=== PATIENT | female | born 1990 | race African-American/Black ===

== ENCOUNTER 2019-05-12 02:41 | Inpatient (IN) ==
[2019-05-12] MEDS ORDERED: ONDANSETRON INJ 2 MG/ML 2 ML VIAL IV PRN ×2 (03:31→06:51)
[2019-05-12] MEDS ORDERED: LACTATED RINGER'S 2,000 ML IV ONE (03:31)
[2019-05-12] MEDS: LACTATED RINGER'S 1,000 ML IV SCH ×2 (03:35→04:32)
[2019-05-12] MEDS ORDERED: LACTATED RINGER'S 1,000 ML IV PRN (05:33)
[2019-05-12] MEDS ORDERED: OXYTOCIN 30 UNITS/500 ML BAG IV PRN ×2 (05:33→12:16)
[2019-05-12] MEDS ORDERED: ePHEDrine sulfate 50 MG/ML AMP ONE (05:45)
[2019-05-12] MEDS ORDERED: BUPIVACAINE 0.25% 30 ML VIAL ONE (05:45)
[2019-05-12] MEDS ORDERED: fentaNYL 2MCG/ML ROPIV 1.25MG/ML 100 ML BAG EPI ONE (05:46)
[2019-05-12] MEDS ORDERED: fentaNYL citrate 100 MCG/2 ML VIAL ONE (05:46)
[2019-05-12 06:06] LABS: Hematocrit (blood only) 34.2 % (37-47); Hemoglobin 11.1 g/dL (12.0-16.0); Mean Corpuscular Hemoglobin 25.6 pg (25-34); Mean Platelet Volume 9.4 fL (7.4-10.4); Platelet Count 291 K/uL (130-400); RDW Coefficient of Variation 13.8 % (11.5-14.5); RDW Standard Deviation 39.3 fL (36.4-46.3); Red Blood Count 4.33 M/uL (4.2-5.4); White Blood Count 10.88 K/uL (4.8-10.8)
[2019-05-12 06:14] LABS: Mean Corpuscular Hgb Conc 32.5 g/dL (32-36)
--- NOTE | 2019-05-12 06:27 | Anesthesiology Consultation ---
Date of Service May 12, 2019 Assessment & Plan (1) Encounter for pre-operative examination: Chart Review Chart Review: Acceptable Risk for Labor Epidural History Height/Weight Height: 5 ft 4 in Weight: 91.138 kg Allergies Allergy/AdvReac Type Severity Reaction Status Date / Time aspirin Allergy Verified 05/09/19 15:23 Penicillins Allergy Verified 05/09/19 15:23 Medications Home Medications Medication Instructions Recorded Confirmed Last Taken ferrous sulfate [iron] 325 mg PO DAILY 05/12/19 05/12/19 05/09/19 vit-iron fum-folic ac 1 tab PO DAILY 05/12/19 05/12/19 05/06/19 [ Vitamin] Active Medications Generic Name Dose Route Start Last Admin Trade Name Freq PRN Reason Stop Dose Admin Lactated Ringer's 1,000 mls @ 125 mls/hr 05/12/19 05:33 05/12/19 05:44 Lr IV 05/14/19 05:32 125 mls/hr .Q8H PRN Administration L&D Protocol Protocol Ondansetron HCl 4 mg 05/12/19 03:31 05/12/19 03:41 Zofran IV 06/11/19 03:30 4 mg Q4H PRN Administration Nausea And Vomiting Past Medical History Medical History H/O tuberculosis Pt tested positive for Tuberculosis and was treated in Asthma Chicken pox Past Family History Family History Grandmother (Maternal) Heart disease Father Hypertension Past Surgical History Surgical History H/O elbow surgery 1996 No pertinent past surgical history Social History Smoking Status: Never smoker Hx Alcohol Use: No Hx Substance Use: No Physical Exam Vital Signs Last Vital Signs Temp 37.4 C 05/12/19 03:02 Pulse 98 H 05/12/19 06:20 Resp 18 05/12/19 05:59 BP 135/89 05/12/19 04:06 Pulse Ox 100 05/12/19 06:20 Testing Laboratory Results 05/12/19 05:56
[2019-05-12] MEDS ORDERED: NALOXONE HCL 1 MG in SODIUM CHLORIDE 0.9% 1000ML 1,000 ML IV PRN (06:51)
[2019-05-12] MEDS ORDERED: NALOXONE HCL 0.4 MG/1 ML VIAL/CARP IV PRN (06:51)
[2019-05-12] MEDS ORDERED: fentaNYL 2MCG/ML ROPIV 1.25MG/ML 100 ML BAG EPI PRN (06:51)
[2019-05-12] MEDS ORDERED: ePHEDrine sulfate 50 MG/ML AMP IV PRN (06:51)
--- NOTE | 2019-05-12 08:31 | History & Physical Report ---
Date of Service May 12, 2019 Assessment & Plan (1) Normal labor: IUP at term in labor She had some watery discharge on the evening of 05/10 but has seen nothing but bloody show, mucus & brown discharge since then. epidural analgesia effective at this time anticipate vaginal . History of Present Illness Primary Care Provider: NO PCP Patient is a 29 yo female EDC 05/13/19 who presents with regular con tractions since 0300 hours. She had been having bloody show then brown discharge earlier in the day. baby active. GBS (-) cervix was initially 1cm on arrival. she also had 3+ ketones on arrival as well. cervix then progressed to 3 cm dilated and was admitted. Patient has otherwise had an uncomplicated . Allergies Allergy/AdvReac Type Severity Reaction Status Date / Time aspirin Allergy Verified 05/09/19 15:23 Penicillins Allergy Verified 05/09/19 15:23 Home Medications Home Medications Medication Instructions Recorded Confirmed Type ferrous sulfate [iron] 325 mg PO DAILY 05/12/19 05/12/19 History vit-iron fum-folic ac 1 tab PO DAILY 05/12/19 05/12/19 History [ Vitamin] Patient History Medical History H/O tuberculosis Pt tested positive for Tuberculosis and was treated in 2008 Asthma Chicken pox Surgical History H/O elbow surgery 1996 No pertinent past surgical history Family History Grandmother (Maternal) Heart disease Father Hypertension Social History Preferred Language: Central African Communication Ability: Effective Corporate Strategy Intern Required: No Beliefs That Will Affect Care: None marital status: Single Current Living Situation: Spouse Other Information That Helps Us Care for You: No Feels Safe at Home: Yes Safety Concerns: Feels Safe At This Time Smoking Status: Never smoker Second Hand Exposure: No ; Hx Alcohol Use: No Hx Substance Use: No Review of Systems All systems reviewed & are unremarkable except as noted in HPI & below Physical Exam Constitutional: WD/WN, vitals as above Respiratory: normal respiratory effort, lungs clear to auscultation Cardiovascular: RRR, no murmur, no edema Gastrointestinal (Abdomen): normal bowel sounds, soft, nontender, no hepatosplenomegaly Psychiatric: A+Ox3, euthymic affect Genitourinary: OB Exam Abdomen: + vertex and + estimated weight (7-8 pounds) Manual OB Exam: + cervical dilation 7 cm, + cervical effacement 90%, + station -2 and + amniotic fluid (membranes not palpable ) OB Exam Monitor Tracing: + external FHT monitor used, + external uterine monitor used, + category II and + normal FHT variability Results & Data Vital Signs (Past 12 Hours) Vital Signs Temp Pulse Resp BP Pulse Ox 05/12/19 08:26 86 142/81 H 05/12/19 08:25 87 100 05/12/19 08:22 85 145/74 H 05/12/19 08:20 74 100 05/12/19 08:16 100 H 128/72 05/12/19 08:15 97 H 100 05/12/19 08:12 75 140/70 05/12/19 08:10 77 99 05/12/19 08:07 76 136/69 05/12/19 08:05 91 H 99 05/12/19 08:01 93 H 136/71 05/12/19 08:00 93 H 20 100 05/12/19 07:57 76 129/65 05/12/19 07:55 85 100 05/12/19 07:52 100 H 125/79 05/12/19 07:50 88 100 05/12/19 07:46 104 H 130/86 05/12/19 07:45 98 H 100 05/12/19 07:41 88 138/84 05/12/19 07:40 81 100 05/12/19 07:36 91 H 138/83 05/12/19 07:35 92 H 99 05/12/19 07:31 83 141/80 H 05/12/19 07:30 81 18 100 05/12/19 07:27 73 139/79 05/12/19 07:25 72 100 05/12/19 07:21 85 132/73 05/12/19 07:20 77 100 05/12/19 07:16 103 H 127/71 05/12/19 07:15 101 H 99 05/12/19 07:10 108 H 100 05/12/19 07:07 98.2 F 93 H 18 131/72 05/12/19 07:06 92 H 130/72 05/12/19 07:05 96 H 99 05/12/19 07:02 103 H 128/72 05/12/19 07:00 91 H 16 99 05/12/19 06:56 109 H 125/73 05/12/19 06:55 110 H 100 05/12/19 06:53 75 128/74 05/12/19 06:52 18 05/12/19 06:50 71 18 129/74 97 05/12/19 06:48 81 18 127/74 93 05/12/19 06:46 72 137/85 05/12/19 06:45 75 99 05/12/19 06:44 94 H 134/80 05/12/19 06:40 99 H 100 05/12/19 06:35 99 H 100 05/12/19 06:30 103 H 18 100 05/12/19 06:26 80 93 05/12/19 06:25 73 100 05/12/19 06:20 98 H 100 05/12/19 06:17 75 92 05/12/19 06:15 75 99 05/12/19 05:59 18 05/12/19 05:30 18 05/12/19 04:30 18 05/12/19 04:06 82 135/89 05/12/19 04:00 18 05/12/19 03:30 18 05/12/19 03:02 99.3 F 78 18 155/94 H 05/12/19 02:59 99.3 F 18 Code Status & VTE Plan VTE Prophylaxis Plan VTE Prophylaxis will be ordered: No
[2019-05-12 10:14] LABS: Albumin Globulin Ratio 0.5 (0.9-2); Albumin Level 2.2 gm/dl (3.4-5.0); BUN Creatinine Ratio 6.1 (10-20); Bilirubin,Total 0.4 mg/dl (0.2-1); Creatinine Clr Calc Pharmacy 145.1 ml/min; Est GFR (African American) 140.2; Globulin 4.8 gm/dl (2.5-4.0); Potassium 3.5 mmol/L (3.5-5.1)
[2019-05-12] MEDS ORDERED: miSOPROStoL 200 MCG TAB ONE (11:33)
--- NOTE | 2019-05-12 12:10 | Delivery Summary ---
Vaginal Delivery Summary Date of Service May 12, 2019 Vaginal Delivery Summary Vaginal Delivery Summary: Pre-delivery diagnoses: 29yo @ 39 6/7, spontaneous labor, obesity, elevated BP Post-delivery diagnoses: same + 1st degree perineal laceration. Velamentous in sertion of cord. Procedure: spontaneous vaginal delivery, repair of 1st degree laceration and bilateral paraurethral lacerations Surgeon: Cindy Meadows DO Complications: none Findings: Viable female . Apgars: 9/10. Weight pending, please see nursery records. Estimated blood loss: 400ml Description of delivery: The patient progressed to complete with epidural anesthesia. She had elevated BPs in 140-150s/90, preeclampsia labs wnl. She then began to push. She spontaneously vaginally delivered a viable from the cephalic presentation. The head delivered in ARIANNA position. The anterior shoulder delivered, followed by the posterior shoulder, followed by the body. The baby was placed on mother's abdomen and a spontaneous cry was heard. Delayed cord clamping was employed, and the cord was doubly clamped and cut. Cord blood was obtained. The placenta was delivered spontaneously intact with a 3-vessel cord - marginal insertion of cord with appearance of velamentous insertion. The uterus and vagina were swept of clots and debris. IV pitocin was given. The uterus was atonic, and had a small amount of blood clot extracted manually. Due to this atony, 1 dose of 1000mcg cytotec administered rectally. The uterus became firm. The cervix, vagina, and perineum were inspected and a first degree perineal laceration was noted, repaired with 3-0 vicryl. Bilateral periurethral lacerations noted and oozing blood, therefore repaired with [id number] suture 3-0 vicryl. Far from urethra. Excellent hemostasis was observed at conclusion of repair. The mother and baby are recovering in stable and good condition in the room. Sponge and instrument counts were correct x 2. DO KITA López
[2019-05-12] MEDS ORDERED: OXYCODONE/ACETAMINOPHEN 5mg/325mg TAB PO PRN (12:16)
[2019-05-12] MEDS ORDERED: ACETAMINOPHEN 325 MG TAB PO PRN (12:16)
[2019-05-12] MEDS ORDERED: bisacodyL 10 MG SUPP PR PRN (12:16)
[2019-05-12] MEDS ORDERED: DIPHTHERIA/TETANUS/PERTUSSIS 0.5 ML SYR/VIAL IM ONE (12:16)
[2019-05-12] MEDS ORDERED: LACTATED RINGER'S 1,000 ML IV SCH (12:16)
[2019-05-12] MEDS ORDERED: SUPERCREAM 0.870% 15 GM JAR EXT PRN (12:16)
[2019-05-12] MEDS ORDERED: BENZOCAINE 20% AER SPR 82.5 GM CAN EXT PRN (12:16)
[2019-05-12] MEDS ORDERED: HYDROCORTISONE ACETATE 25 MG SUPP PR PRN (12:16)
--- NOTE | 2019-05-12 13:29 | Anesthesia Procedure Note ---
Date of Service May 12, 2019 Anesthesia Post Epidural Note Vital Signs Vital Signs: Temp Pulse Resp BP Pulse Ox 37.3 C 101 H 18 145/91 H 100 05/12/19 11:05 05/12/19 13:18 05/12/19 11:05 05/12/19 13:18 05/12/19 11:45 Pain Intensity Abdomen: Pain Intensity: 0 Notes Mental Status: alert / awake / arousable and participated in evaluation Nausea / Vomiting: adequately controlled Pain: adequately controlled Airway Patency, RR, SpO2: stable & adequate BP & HR: stable & adequate Hydration State: stable & adequate Neuraxial Anesthesia: was administered and sensory block is resolving Anesthetic Complications: no major complications apparent and Pt Satisfied with anesthetic care Epidural: Removed without complications and With tip intact
[2019-05-12] MEDS: IBUPROFEN 600 MG TAB PO PRN ×3 (13:44→22:09)
[2019-05-12] MEDS ORDERED: DOCUSATE SODIUM 100 MG CAP ONE (19:35)
--- NOTE | 2019-05-13 06:05 | Obstetrical Progress Note ---
Date of Service <Shakira Candelaria DO - Last Filed: 05/13/19 06:47> May 13, 2019 Assessment & Plan <Shakira Candelaria DO - Last Filed: 05/13/19 06:47> (1) Encounter for care and examination after delivery: 29 yo F PPD#1 following vaginal delivery at 39w6d; doing well and without complaints this AM. - PPD #1 - Feels well, ambulating well, voiding well. - Will continue routine care. - Following d/c will have f/u in 6 weeks. - Blood type O+, Rubella immune per outside records. Day #:: 1 Subjective <Shakira Candelaria DO - Last Filed: 05/13/19 06:47> Cheryl is a 29 yo female ; PPD # 1 following vaginal delivery at 39w6d; doing well this AM; no abdominal cramping/pain; voiding well, passing gas but no BM; tolerating meals overnight, able to ambulate some within the room. Some persistent spotting this morning but improved from yesterday. Review of Systems Constitutional: denies fever, chills, sweats, headache Respiratory: denies SOB, difficulty breathing Cardiac: denies CP, chest palpitations, chest pressure Breast: denies breast pain : denies dysuria Physical Exam <DO Ivelisse Parson Last Filed: 05/13/19 06:47> General: patient is alert and oriented, in NAD Cardiac: +S1/S2, no murmurs rubs or gallops Respiratory: lungs CTA b/l, anteriorly and posteriorly, no wheezes rales or rhonchi, no increased work of breathing, symmetric chest rise, no respiratory distress Abdomen: soft, NT, +bowel sounds Uterus: uterine fundus firm, palpable 2cm below the umbilicus. Incision intact, non-tender, non-erythematous, no weeping from incision site Lower Extremities: no LE edema or swelling, no deep calf pain, Bc's sign negative b/l Results & Data <DO Ivelisse Parson Last Filed: 05/13/19 06:47> Vital Signs (Past 12 Hours) Vital Signs Temp Pulse Resp BP Pulse Ox 05/13/19 04:30 36.5 C 73 16 130/85 96 05/12/19 23:30 36.5 C 84 17 121/81 98 05/12/19 19:50 36.4 C L 87 17 134/87 97 05/12/19 18:30 36.6 C Laboratory Results Laboratory Results - last 24 hr 05/12/19 05/12/19 05:56 09:31 MCHC 32.5 Sodium 139 Potassium 3.5 Chloride 107 Carbon Dioxide 23 Anion Gap 9.0 BUN 4 L Creatinine 0.62 Est Cr Clr Drug Dosing 145.1 Est GFR ( Amer) 140.2 Est GFR (Non-Af Amer) 121.0 BUN/Creatinine Ratio 6.1 L Glucose 79 Calcium 9.0 Total Bilirubin 0.4 AST 17 ALT 19 Alkaline Phosphatase 217 H Total Protein 7.0 Albumin 2.2 L Globulin 4.8 H Albumin/Globulin Ratio 0.5 L Medications Administered Current Medications Acetaminophen (Tylenol) 650 mg PO Q6H PRN PRN Reason: Pain/BREWER/Fever Stop: 06/11/19 12:15 Last Admin: 05/13/19 01:12 Dose: 650 mg Documented by: Benzocaine (Dermoplast Pain Relieving [place]) 1 appln EXT PRN PRN PRN Reason: Perineal Discomfort Stop: 06/11/19 12:15 Last Admin: 05/12/19 19:41 Dose: 1 appln Documented by: Bisacodyl (Dulcolax) 10 mg [place] DAILY PRN PRN Reason: No BM on 2nd post- day Stop: 06/11/19 12:15 Cocaine HCl (Supercream 0.870%) 1 gm EXT BID PRN PRN Reason: Hemorrhoidal Inflammation Stop: 05/26/19 12:15 Docusate Sodium (Colace) 100 mg PO DAILY@08,21 [facility] Stop: 06/11/19 20:59 Ephedrine Sulfate (Ephedrine Sulfate) 10 mg IV Q5M PRN PRN Reason: Hypotension Stop: 05/13/19 06:50 Hydrocortisone (Anusol Hc) 25 mg [place] BID PRN PRN Reason: Hemorrhoidal Inflammation Stop: 06/11/19 12:15 Naloxone HCl 1 mg/ Sodium (Chloride) 1,002.5 mls @ 50 mls/hr IV .Q20H3M PRN PRN Reason: itching or nausea Stop: 05/13/19 06:50 Lactated Ringer's (Lr) 1,000 mls @ 125 mls/hr IV .Q8H [facility] Stop: 06/11/19 12:15 Oxytocin (Pitocin) 30 units in 500 mls @ 333.333 mls/hr IV .Q1H30M PRN; Protocol PRN Reason: Bleeding Control Stop: 06/11/19 12:15 Ibuprofen (Motrin) 600 mg PO Q4H PRN PRN Reason: Pain/BREWER/Cramping/Fever Stop: 06/11/19 12:15 Last Admin: 05/12/19 22:09 Dose: 600 mg Documented by: Naloxone HCl (Narcan) 0.1 mg IV UD PRN PRN Reason: respiratory depression Stop: 05/13/19 06:50 Ondansetron HCl (Zofran) 4 mg IV Q6H PRN PRN Reason: Nausea And Vomiting Stop: 05/13/19 06:50 Oxycodone/Acetaminophen (Percocet 5mg/325mg) 1 tab PO Q4H PRN PRN Reason: Pain not relieved by... Stop: 05/26/19 12:15 Prenat Multivit/[place]/Iron/Folic Ac ( Vitamin) 1 tab PO DAILY@08 [facility] Stop: 06/12/19 07:59 Ropivacaine (Epidural (L&D)) 100 ml EPI PRN PRN; Protocol PRN Reason: Pain R/T Labor Stop: 05/13/19 06:50 <Cindy Meadows DO - Last Filed: 05/13/19 08:22> Co-Signing Physician Notes Resident Physician Supervision Note: I was present with Dr. Clark during the history and exam. I discussed the case with the resident and agree with the findings and plan as documented in the note. Any exceptions or clarifications are listed here: PPD#1 doing well. Unable to delete resident's findings of incision. This is not accurate - patient delivered vaginally. Routine care, anticipate DC tomorrow. Documented By: Cindy Meadows DO Resident Activity Tracking <Shakira Candelaria DO - Last Filed: 05/13/19 06:47> Resident Involvement: Resident Care Provided Care Provided: Adult [facility]
[2019-05-13 06:43] LABS: Hematocrit (blood only) 27.3 % (37-47); Hemoglobin 8.7 g/dL (12.0-16.0); Mean Corpuscular Hemoglobin 25.7 pg (25-34); Mean Corpuscular Hgb Conc 31.9 g/dL (32-36); Mean Corpuscular Volume 80.5 fL (80-100); Mean Platelet Volume 9.3 fL (7.4-10.4); Platelet Count 244 K/uL (130-400); RDW Coefficient of Variation 14.2 % (11.5-14.5); RDW Standard Deviation 41.5 fL (36.4-46.3); Red Blood Count 3.39 M/uL (4.2-5.4); White Blood Count 10.74 K/uL (4.8-10.8)
[2019-05-13] MEDS: IBUPROFEN 600 MG TAB PO PRN ×3 (08:44→20:25)
[2019-05-13] MEDS: DOCUSATE SODIUM 100 MG CAP PO SCH (08:44)
[2019-05-13] MEDS: PRENATAL VITAMIN 1 TAB PO SCH (08:45)
[2019-05-13] MEDS ORDERED: NURSING DECISION MEDICATION PRN (20:59)
[2019-05-13] MEDS ORDERED: SODIUM CHLORIDE 0.65% NA SOLN 45 ML (OCEAN) ONE (21:01)
[2019-05-13] MEDS ORDERED: SODIUM CHLORIDE 0.65% NA SOLN 45 ML (OCEAN) PRN (21:08)
--- NOTE | 2019-05-14 05:57 | Obstetrical Progress Note ---
Date of Service <Shakira Candelaria DO - Last Filed: 05/14/19 06:47> May 14, 2019 Assessment & Plan <Shakira Candelaria DO - Last Filed: 05/14/19 06:47> (1) Encounter for care and examination after delivery: 29 yo F PPD#2 following vaginal delivery at 39w6d; doing well and without complaints this AM. - PPD #2 - Feels well, ambulating well, voiding well. - For d/c home today. - Following d/c will have f/u in 6 weeks. - Blood type O+, Rubella immune per outside records. Subjective <Shakira Candelaria DO - Last Filed: 05/14/19 06:47> Cheryl is a 29 yo female ; PPD # 2 following spontaneous vaginal delivery at 39w6d; doing well this AM; no abdominal cramping/pain; voiding well, passing gas and +BM; tolerating meals overnight, able to ambulate some within the room. Some persistent spotting this morning but improved from yesterday. Review of Systems Constitutional: denies fever, chills, sweats, headache Respiratory: denies SOB, difficulty breathing Cardiac: denies CP, chest palpitations, chest pressure Breast: denies breast pain : denies dysuria Physical Exam <Shakira Candelaria DO - Last Filed: 05/14/19 06:47> General: patient is alert and oriented, in NAD Cardiac: +S1/S2, no murmurs rubs or gallops Respiratory: lungs CTA b/l, anteriorly and posteriorly, no wheezes rales or rhonchi, no increased work of breathing, symmetric chest rise, no respiratory distress Abdomen: soft, NT, +bowel sounds Uterus: uterine fundus firm, palpable 3cm below the umbilicus Lower Extremities: no LE edema or swelling, no deep calf pain, Bc's sign negative b/l Results & Data <DO Ivelisse Parson Last Filed: 05/14/19 06:47> Vital Signs (Past 12 Hours) Vital Signs Temp Pulse Resp BP Pulse Ox 05/14/19 01:00 36.6 C 87 16 129/80 97 Laboratory Results Laboratory Results - last 24 hr 05/13/19 06:25 WBC 10.74 RBC 3.39 L Hgb 8.7 L Hct 27.3 L MCV 80.5 MCH 25.7 MCHC 31.9 L RDW Std Deviation 41.5 RDW Coeff of [place] 14.2 Plt Count 244 MPV 9.3 Medications Administered Current Medications Acetaminophen (Tylenol) 650 mg PO Q6H PRN PRN Reason: Pain/BREWER/Fever Stop: 06/11/19 12:15 Last Admin: 05/13/19 01:12 Dose: 650 mg Documented by: Benzocaine (Dermoplast Pain Relieving [place]) 1 appln EXT PRN PRN PRN Reason: Perineal Discomfort Stop: 06/11/19 12:15 Last Admin: 05/12/19 19:41 Dose: 1 appln Documented by: Bisacodyl (Dulcolax) 10 mg SC DAILY PRN PRN Reason: No BM on 2nd post- day Stop: 06/11/19 12:15 Cocaine HCl (Supercream 0.870%) 1 gm EXT BID PRN PRN Reason: Hemorrhoidal Inflammation Stop: 05/26/19 12:15 Docusate Sodium (Colace) 100 mg PO DAILY@08,21 [facility] Stop: 06/11/19 20:59 Last Admin: 05/13/19 08:44 Dose: 100 mg Documented by: Hydrocortisone (Anusol Hc) 25 mg SC BID PRN PRN Reason: Hemorrhoidal Inflammation Stop: 06/11/19 12:15 Lactated Ringer's (Lr) 1,000 mls @ 125 mls/hr IV .Q8H [facility] Stop: 06/11/19 12:15 Oxytocin (Pitocin) 30 units in 500 mls @ 333.333 mls/hr IV .Q1H30M PRN; Protocol PRN Reason: Bleeding Control Stop: 06/11/19 12:15 Ibuprofen (Motrin) 600 mg PO Q4H PRN PRN Reason: Pain/BREWER/Cramping/Fever Stop: 06/11/19 12:15 Last Admin: 05/13/19 20:25 Dose: 600 mg Documented by: Oxycodone/Acetaminophen (Percocet 5mg/325mg) 1 tab PO Q4H PRN PRN Reason: Pain not relieved by... Stop: 05/26/19 12:15 Prenat Multivit/Video Editing Intern/Iron/Folic Ac ( Vitamin) 1 tab PO DAILY@08 [facility] Stop: 06/12/19 07:59 Last Admin: 05/13/19 08:45 Dose: Not Given Documented by: Sodium Chloride ([place] Nasal) 1 sprays NA PRN PRN PRN Reason: NASAL CONGESTION Stop: 06/12/19 21:07 <Jori Carrasco Jr, MD, FACOG - Last Filed: 05/14/19 08:02> Co-Signing Physician Notes Resident Physician Supervision Note: I was present with Dr. Clark during the history and exam. I discussed the case with the resident and agree with the findings and plan as documented in the note. Any exceptions or clarifications are listed here: D/C instructions reviewed, all questions answered Documented By: Jori Carrasco Jr, MD, FACOG Resident Activity Tracking <Shakira Candelaria DO - Last Filed: 05/14/19 06:47> Resident Involvement: Resident Care Provided Care Provided: Adult Hospital Medicine
[2019-05-14 07:19] LABS: Hematocrit (blood only) 28.2 % (37-47); Hemoglobin 8.9 g/dL (12.0-16.0)
[2019-05-14] MEDS: DOCUSATE SODIUM 100 MG CAP PO SCH (08:03)
[2019-05-14] MEDS: IBUPROFEN 600 MG TAB PO PRN (08:03)
[2019-05-14] MEDS: PRENATAL VITAMIN 1 TAB PO SCH (09:01)
== END 2019-05-14 11:30 | disposition home or self-care (01) | DRG 807 ==
LOC: OPB 02:41 → 4S1 02:47 → 4S2 15:19

== ENCOUNTER 2022-01-15 13:08 | Inpatient (IN) ==
[2022-01-15] MEDS ORDERED: OXYTOCIN 30 UNITS/500 ML BAG IV PRN ×3 (13:35→20:47)
--- NOTE | 2022-01-15 13:39 | History & Physical Report ---
Date of Service January 15, 2022 Assessment & Plan (1) 40 weeks gestation of : (2) SROM (spontaneous rupture of membranes): Plan: admit, thin mec in fluid. fetus category one. Appears to be delaney too frequently for cytotec. Offered expectant management or pitocin now and choses the latter. Anticipate vaginal delivery. History of Present Illness Chief Complaint: rom Primary Care Provider: Janene Shultz Patient is a 31yo with iup at40 3/7 who presents to labor and delivery complaining of leaking fluid since about noon. Notes fluid was yellow with a green tinge. Notes some increased cramping since then. +fm. no vb. Patient passed 16 week gtt, but 28 week gtt was 152, I do not see a 2 hr gtt, may have missed that. 32 week growth for obesity showed baby in 68%, AC 73%. Patient declined nsts at end of as would get sob in chair sitting for them. and Delivery Plans Obesity (BMI 36.7 @ begining of ) *Growth US @ 32wks. *Weekly NST's @ 36wks-Declining s/p pfizer OB Labs: Blood Type O Positive 06/08/21 Antibody Screen NEGATIVE 06/08/21 Hemoglobin 11.3 g/dL (12.0-16.0) L 11/09/21 Hematocrit 34.1 % (37-47) L 11/09/21 Mean Corpuscular Volume 84.8 fL (80-100) 06/08/21 Platelet Count 390 K/uL (130-400) 06/08/21 Rubella IgG Antibody Immune (Immune) 06/08/21 Rapid Plasma Reagin Nonreactive (Nonreactive) 06/08/21 Hepatitis B Surface Antigen Neg (Neg) 06/08/21 HIV (1&2) Ab and P24 Ag, 4th Gener Neg (Neg) 06/08/21 Glucose 1 Hour 50 gm Load 152 mg/dl (70-130) H 11/09/21 OB Optional Labs: Chlamydia trachomatis RNA NOT DETECTED (NOT DETECTED) 06/08/21 Neisseria gonorrhoeae RNA NOT DETECTED (NOT DETECTED) 06/08/21 Labs Reviewed: 2017 cf/sma negative gbs neg low risk cell free dna. Allergies Allergy/AdvReac Type Severity Reaction Status Date / Time aspirin Allergy swelling, Verified 01/11/22 15:50 redness Penicillins Allergy swelling Verified 01/11/22 15:50 Home Medications Medication Instructions Recorded Confirmed Type prenat.vits,zain,jhv-hmhu-pnaog 1 tab PO DAILY 06/06/21 01/11/22 History famotidine [Pepcid AC] PO 07/06/21 01/11/22 History Patient History Medical History Asthma Chicken pox H/O tuberculosis Surgical History H/O elbow surgery No pertinent past surgical history Family History (Updated 06/06/21 @ 09:18 by Jen Kwong) Grandmother (Maternal) Heart disease Father Hypertension Brain tumor Denies family history of Ovarian cancer Breast cancer Colorectal cancer Social History (Updated 06/06/21 @ 09:08 by Jen Kwong) Smoking Status: Never smoker Second Hand Exposure: No; Hx Alcohol Use: No Hx Substance Use: No Preferred Language: Latvian Communication Ability: Effective 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 Date GA wks Lbr Lgth wt Sex Type del Anes Place Del Prov ? Comment 05/12/19 40 B 6lb 4.3oz F Epi dural [facility] Dori Physical Exam Constitutional: WD/WN, vitals as above Gastrointestinal (Abdomen): soft, gravid, nt Psychiatric: A+Ox3, euthymic affect Genitourinary: cx--1/l/h toco--q2-3min efm--150s with mod variability, accels to 160s, no decels. Results & Data ([facility]) Vital Signs (Past 12 Hours) Vital Signs Temp Pulse Resp BP 01/15/22 13:30 37.0 C 20 01/15/22 13:19 104 H 136/87 Code Status & VTE Plan VTE Prophylaxis Plan VTE Prophylaxis will be ordered: No Coding Level of Care Code None Diagnoses 40 weeks gestation of Z3A.40 SROM (spontaneous rupture of membranes)
[2022-01-15] MEDS ORDERED: miSOPROStoL 50 MCG TAB PO ONE (13:54)
--- NOTE | 2022-01-15 13:54 | Communication Note ---
Date of Service: January 15, 2022 after further monitoring, looks like just had some irritability when first moitored and now settling into more spaced contractions q 7-8 min. Will give a po cytotec.
[2022-01-15 14:09] LABS: Hematocrit (blood only) 33.2 % (37-47); Hemoglobin 10.8 g/dL (12.0-16.0); Mean Corpuscular Hemoglobin 27.1 pg (25-34); Mean Corpuscular Hgb Conc 32.5 g/dL (32-36); Mean Corpuscular Volume 83.4 fL (80-100); Mean Platelet Volume 10.1 fL (7.4-10.4); Platelet Count 308 K/uL (130-400); RDW Coefficient of Variation 13.6 % (11.5-14.5); RDW Standard Deviation 41.1 fL (36.4-46.3); Red Blood Count 3.98 M/uL (4.2-5.4); White Blood Count 7.32 K/uL (4.8-10.8)
[2022-01-15] MEDS: LACTATED RINGER'S 1,000 ML IV PRN ×2 (15:20→16:25)
[2022-01-15] MEDS ORDERED: TERBUTALINE SULFATE 1 MG/ML VIAL SQ ONE (15:30)
[2022-01-15] MEDS ORDERED: TERBUTALINE SULFATE 1 MG/ML VIAL ONE (15:36)
--- NOTE | 2022-01-15 15:50 | Labor Progress Brief Note ---
Date of Service January 15, 2022 Subjective Patient noting contractions 3-11/27, got 50 po cytotec at 2:45. Assessment & Plan (1) SROM (spontaneous rupture of membranes): (2) 40 weeks gestation of : Plan: a run of about 4 variable decels in the space of 20 minutes. s/p terb, now variables resolved. Will monitor closely. Don't think we had tachysystole but will monitor closely. Fetus is recovering. Will expectantly manage for now. Can't add pit for 4 hours from cytotec. Admission and Anticipated Discharge Date Admission Date: January 15, 2022 Physical Exam Physical Exam: cx--deferred efm--was 150s with mod variability, +accels no decels. then suddenly at 3:10 started with variable type decels, some with contractions toco--less than q 3 min, palpating mild, contractions before cytotec were about q 5min terb 0.25mg SQ given., ivf bolus and position changes intiated Now baseline 150s with min/mod variability, no further decels noted. Results & Data ([facility]) Vital Signs (Past 12 Hours) Vital Signs Temp Pulse Resp BP Pulse Ox 01/15/22 15:40 105 H 98 01/15/22 15:35 94 H 98 01/15/22 15:30 89 99 01/15/22 15:25 85 98 01/15/22 15:20 93 H 98 01/15/22 15:00 36.6 C 99 H 18 130/94 01/15/22 13:30 37.0 C 20 01/15/22 13:19 104 H 136/87 Coding Level of Care Code None Diagnoses SROM (spontaneous rupture of membranes) 40 weeks gestation of Z3A.40
--- NOTE | 2022-01-15 16:09 | Communication Note ---
Date of Service: January 15, 2022 efm--150s wtih mod variability , accels to 170s, no further decels toco--occasional Will monitor for now. May have been an episode of tachysystole, but did not really appear that way. Nevertheless, fetus category one. Can hear the baby moving and rolling.
[2022-01-15] MEDS ORDERED: SODIUM CHLORIDE 0.9% INJ 10 ML VIAL ONE (16:42)
[2022-01-15] MEDS ORDERED: ePHEDrine sulfate 50 MG/ML AMP ONE (16:42)
[2022-01-15] MEDS ORDERED: BUPIVACAINE 0.25% 30 ML VIAL ONE (16:42)
[2022-01-15] MEDS ORDERED: fentaNYL citrate 100 MCG/2 ML VIAL ONE (16:42)
[2022-01-15] MEDS ORDERED: fentaNYL 2MCG/ML ROPIVACAINE 1.25MG/ML 100 ML BAG EPI ONE (16:43)
--- NOTE | 2022-01-15 16:51 | Anesthesiology Consultation ---
Date of Service January 15, 2022 Assessment & Plan (1) Encounter for pre-operative examination: Chart Review Chart Review: Acceptable Risk for Labor Epidural History Height/Weight Height: 5 ft 4 in Weight: 96.615 kg Allergies Allergy/AdvReac Type Severity Reaction Status Date / Time aspirin Allergy swelling, Verified 01/11/22 15:50 redness Penicillins Allergy swelling Verified 01/11/22 15:50 Medications Home Medications Medication Instructions Recorded Confirmed Last Taken prenat.vits,zain,tit-kjkm-xcpgt 1 tab PO DAILY 06/06/21 01/15/22 01/13/22 09:00 Past Medical History Medical History Asthma Chicken pox H/O tuberculosis Pt tested positive for Tuberculosis and was treated in 2008 Past Family History Family History Grandmother (Maternal) Heart disease Father Hypertension Brain tumor Denies family history of Ovarian cancer Breast cancer Colorectal cancer Past Surgical History Surgical History H/O elbow surgery 1996 No pertinent past surgical history Social History Smoking Status: Never smoker Do You Dip or Chew Tobacco: No Hx Alcohol Use: No Hx Substance Use: No substance use type: does not use Physical Exam Vital Signs Last Vital Signs Temp 36.7 C 01/15/22 16:30 Pulse 119 H 01/15/22 16:44 Resp 18 01/15/22 16:30 BP 125/68 01/15/22 15:57 Pulse Ox 99 01/15/22 16:44 Testing Laboratory Results 01/15/22 13:57 01/15/22 01/15/22 01/15/22 16:30 15:29 13:54 POC Glucose 78 75 85
[2022-01-15] MEDS ORDERED: ePHEDrine sulfate 50 MG/ML AMP IV PRN (17:30)
[2022-01-15] MEDS ORDERED: NALOXONE HCL 0.4 MG/1 ML VIAL/CARP IV PRN (17:30)
[2022-01-15] MEDS ORDERED: NALOXONE HCL 1 MG in SODIUM CHLORIDE 0.9% 1000ML 1,000 ML IV PRN (17:30)
[2022-01-15] MEDS ORDERED: ONDANSETRON INJ 2 MG/ML 2 ML VIAL IV PRN (17:30)
[2022-01-15] MEDS ORDERED: fentaNYL 2MCG/ML ROPIVACAINE 1.25MG/ML 100 ML BAG EPI PRN (17:30)
--- NOTE | 2022-01-15 18:22 | Labor Progress Brief Note ---
Date of Service January 15, 2022 Subjective comfortable after epidural Assessment & Plan (1) SROM (spontaneous rupture of membranes): (2) 40 weeks gestation of : (3) Meconium in amniotic fluid: Plan: making change, continued expectant management. fetus overall reassuring, category one. Did have decel with a prolonged contraction , but that was first that occurred. Will continue to monitor the baby closely. Admission and Anticipated Discharge Date Admission Date: January 15, 2022 Physical Exam Physical Exam: cx--3/75/-2 meconium toco--q3-5min, had a prolonged ctx about 4 min with decel efm--150s with mod variability, prior to epidural 160s with mod variabiltiy, accels to 180s Results & Data ([facility]) Vital Signs (Past 12 Hours) Vital Signs Temp Pulse Resp BP Pulse Ox 01/15/22 18:14 99 H 98 01/15/22 18:12 98 H 124/64 01/15/22 18:09 112 H 99 01/15/22 18:04 111 H 99 01/15/22 17:59 103 H 98 01/15/22 17:56 109 H 107/60 01/15/22 17:54 107 H 98 01/15/22 17:49 105 H 99 01/15/22 17:44 130 H 99 01/15/22 17:41 122 H 101/55 L 01/15/22 17:40 37.2 C 16 01/15/22 17:39 117 H 99/54 L 99 01/15/22 17:37 130 H 94/54 L 01/15/22 17:35 123 H 102/58 L 01/15/22 17:34 122 H 98 01/15/22 17:33 116 H 107/57 L 01/15/22 17:31 113 H 108/59 L 01/15/22 17:29 102 H 97/49 L 98 01/15/22 17:26 134 H 91/53 L 01/15/22 17:25 123 H 101/56 L 01/15/22 17:24 125 H 101/50 L 99 01/15/22 17:19 145 H 98 01/15/22 17:15 151 H 131/68 01/15/22 17:14 137 H 98 01/15/22 17:09 140 H 98 01/15/22 17:04 127 H 98 01/15/22 16:59 129 H 98 01/15/22 16:54 126 H 99 01/15/22 16:49 120 H 99 01/15/22 16:44 119 H 99 01/15/22 16:39 128 H 99 01/15/22 16:34 121 H 99 01/15/22 16:30 36.7 C 18 01/15/22 16:29 120 H 99 01/15/22 16:24 114 H 98 01/15/22 16:15 117 H 100 01/15/22 16:10 122 H 99 01/15/22 16:05 116 H 98 01/15/22 16:00 107 H 100 01/15/22 15:57 106 H 125/68 01/15/22 15:55 104 H 100 01/15/22 15:50 105 H 98 01/15/22 15:45 100 H 100 01/15/22 15:40 105 H 98 01/15/22 15:35 94 H 98 01/15/22 15:30 89 99 01/15/22 15:25 85 98 01/15/22 15:20 93 H 98 01/15/22 15:00 36.6 C 99 H 18 130/94 01/15/22 13:30 37.0 C 20 01/15/22 13:19 104 H 136/87 Coding Level of Care Code None Diagnoses SROM (spontaneous rupture of membranes) 40 weeks gestation of Z3A.40 Meconium in amniotic fluid P96.83
--- NOTE | 2022-01-15 20:36 | Labor Progress Brief Note ---
Date of Service January 15, 2022 Subjective comfortable Assessment & Plan (1) Meconium in amniotic fluid: (2) SROM (spontaneous rupture of membranes): Plan: continue expectant management. fetus category one. Recheck in an hour or so and if no change, plan adding pit. Admission and Anticipated Discharge Date Admission Date: January 15, 2022 Physical Exam Physical Exam: cx--4/90/-2 toco--q2-4min efm--150s wtih mod variability, accels to 160s, no decels Results & Data ([facility]) Vital Signs (Past 12 Hours) Vital Signs Temp Pulse Resp BP Pulse Ox 01/15/22 20:29 103 H 97 01/15/22 20:27 106 H 136/84 01/15/22 20:24 108 H 98 01/15/22 20:19 107 H 98 01/15/22 20:14 108 H 98 01/15/22 20:12 96 H 118/64 01/15/22 20:09 109 H 98 01/15/22 20:04 108 H 99 01/15/22 20:00 18 01/15/22 19:59 102 H 98 01/15/22 19:57 101 H 116/66 01/15/22 19:54 102 H 98 01/15/22 19:49 99 H 98 01/15/22 19:44 95 H 98 01/15/22 19:42 108 H 116/76 01/15/22 19:39 102 H 100 01/15/22 19:34 109 H 98 01/15/22 19:30 18 01/15/22 19:29 108 H 99 01/15/22 19:27 98 H 117/69 01/15/22 19:24 98 H 98 01/15/22 19:19 100 H 98 01/15/22 19:14 104 H 99 01/15/22 19:12 114 H 131/72 01/15/22 19:10 36.4 C L 18 01/15/22 19:09 111 H 99 01/15/22 19:07 36.4 C L 18 01/15/22 19:04 97 H 99 01/15/22 18:59 103 H 99 01/15/22 18:56 105 H 123/66 01/15/22 18:54 96 H 99 01/15/22 18:49 102 H 99 01/15/22 18:44 102 H 99 01/15/22 18:41 108 H 112/62 01/15/22 18:39 117 H 99 01/15/22 18:34 104 H 99 01/15/22 18:33 36.9 C 18 01/15/22 18:29 93 H 99 01/15/22 18:27 99 H 120/64 01/15/22 18:24 107 H 99 01/15/22 18:19 107 H 99 01/15/22 18:14 99 H 98 01/15/22 18:12 98 H 124/64 01/15/22 18:09 112 H 99 01/15/22 18:04 111 H 99 01/15/22 17:59 103 H 98 01/15/22 17:56 109 H 107/60 01/15/22 17:54 107 H 98 01/15/22 17:49 105 H 99 01/15/22 17:44 130 H 99 01/15/22 17:41 122 H 101/55 L 01/15/22 17:40 37.2 C 16 01/15/22 17:39 117 H 99/54 L 99 01/15/22 17:37 130 H 94/54 L 01/15/22 17:35 123 H 102/58 L 01/15/22 17:34 122 H 98 01/15/22 17:33 116 H 107/57 L 01/15/22 17:31 113 H 108/59 L 01/15/22 17:29 102 H 97/49 L 98 01/15/22 17:26 134 H 91/53 L 01/15/22 17:25 123 H 101/56 L 01/15/22 17:24 125 H 101/50 L 99 01/15/22 17:19 145 H 98 01/15/22 17:15 151 H 131/68 01/15/22 17:14 137 H 98 01/15/22 17:09 140 H 98 01/15/22 17:04 127 H 98 01/15/22 16:59 129 H 98 01/15/22 16:54 126 H 99 01/15/22 16:49 120 H 99 01/15/22 16:44 119 H 99 01/15/22 16:39 128 H 99 01/15/22 16:34 121 H 99 01/15/22 16:30 36.7 C 18 01/15/22 16:29 120 H 99 01/15/22 16:24 114 H 98 01/15/22 16:15 117 H 100 01/15/22 16:10 122 H 99 01/15/22 16:05 116 H 98 01/15/22 16:00 107 H 100 01/15/22 15:57 106 H 125/68 01/15/22 15:55 104 H 100 01/15/22 15:50 105 H 98 01/15/22 15:45 100 H 100 01/15/22 15:40 105 H 98 01/15/22 15:35 94 H 98 01/15/22 15:30 89 99 01/15/22 15:25 85 98 01/15/22 15:20 93 H 98 01/15/22 15:00 36.6 C 99 H 18 130/94 01/15/22 13:30 37.0 C 20 01/15/22 13:19 104 H 136/87 Coding Level of Care Code None Diagnoses Meconium in amniotic fluid P96.83 SROM (spontaneous rupture of membranes)
--- NOTE | 2022-01-15 21:41 | Labor Progress Brief Note ---
Date of Service January 15, 2022 Subjective comfortable Assessment & Plan (1) Meconium in amniotic fluid: (2) SROM (spontaneous rupture of membranes): Plan: making slow but positive change so will continue expectant management. Continue current management. Fetus reassuirng. Admission and Anticipated Discharge Date Admission Date: January 15, 2022 Physical Exam Physical Exam: cx--5/100/-2 toco--q2-4min efm--150s with mod variability, small accels , rare variable Results & Data ([facility]) Vital Signs (Past 12 Hours) Vital Signs Temp Pulse Resp BP Pulse Ox 01/15/22 21:34 100 H 98 01/15/22 21:30 16 01/15/22 21:29 99 H 97 01/15/22 21:27 100 H 137/96 01/15/22 21:24 108 H 97 01/15/22 21:19 94 H 97 01/15/22 21:14 94 H 97 01/15/22 21:12 93 H 131/79 01/15/22 21:09 91 H 97 01/15/22 21:04 94 H 97 01/15/22 21:00 16 01/15/22 20:59 105 H 97 01/15/22 20:56 105 H 134/81 01/15/22 20:54 102 H 98 01/15/22 20:49 105 H 98 01/15/22 20:44 100 H 98 01/15/22 20:41 114 H 130/89 01/15/22 20:39 101 H 98 01/15/22 20:35 37.3 C 01/15/22 20:34 108 H 98 01/15/22 20:30 18 01/15/22 20:29 103 H 97 01/15/22 20:27 106 H 136/84 01/15/22 20:24 108 H 98 01/15/22 20:19 107 H 98 01/15/22 20:14 108 H 98 01/15/22 20:12 96 H 118/64 01/15/22 20:09 109 H 98 01/15/22 20:04 108 H 99 01/15/22 20:00 18 01/15/22 19:59 102 H 98 01/15/22 19:57 101 H 116/66 01/15/22 19:54 102 H 98 01/15/22 19:49 99 H 98 01/15/22 19:44 95 H 98 01/15/22 19:42 108 H 116/76 01/15/22 19:39 102 H 100 01/15/22 19:34 109 H 98 01/15/22 19:30 18 01/15/22 19:29 108 H 99 01/15/22 19:27 98 H 117/69 01/15/22 19:24 98 H 98 01/15/22 19:19 100 H 98 01/15/22 19:14 104 H 99 01/15/22 19:12 114 H 131/72 01/15/22 19:10 36.4 C L 18 01/15/22 19:09 111 H 99 01/15/22 19:07 36.4 C L 18 01/15/22 19:04 97 H 99 01/15/22 18:59 103 H 99 01/15/22 18:56 105 H 123/66 01/15/22 18:54 96 H 99 01/15/22 18:49 102 H 99 01/15/22 18:44 102 H 99 01/15/22 18:41 108 H 112/62 01/15/22 18:39 117 H 99 01/15/22 18:34 104 H 99 01/15/22 18:33 36.9 C 18 01/15/22 18:29 93 H 99 01/15/22 18:27 99 H 120/64 01/15/22 18:24 107 H 99 01/15/22 18:19 107 H 99 01/15/22 18:14 99 H 98 01/15/22 18:12 98 H 124/64 01/15/22 18:09 112 H 99 01/15/22 18:04 111 H 99 01/15/22 17:59 103 H 98 01/15/22 17:56 109 H 107/60 01/15/22 17:54 107 H 98 01/15/22 17:49 105 H 99 01/15/22 17:44 130 H 99 01/15/22 17:41 122 H 101/55 L 01/15/22 17:40 37.2 C 16 01/15/22 17:39 117 H 99/54 L 99 01/15/22 17:37 130 H 94/54 L 01/15/22 17:35 123 H 102/58 L 01/15/22 17:34 122 H 98 01/15/22 17:33 116 H 107/57 L 01/15/22 17:31 113 H 108/59 L 01/15/22 17:29 102 H 97/49 L 98 01/15/22 17:26 134 H 91/53 L 01/15/22 17:25 123 H 101/56 L 01/15/22 17:24 125 H 101/50 L 99 01/15/22 17:19 145 H 98 01/15/22 17:15 151 H 131/68 01/15/22 17:14 137 H 98 01/15/22 17:09 140 H 98 01/15/22 17:04 127 H 98 01/15/22 16:59 129 H 98 01/15/22 16:54 126 H 99 01/15/22 16:49 120 H 99 01/15/22 16:44 119 H 99 01/15/22 16:39 128 H 99 01/15/22 16:34 121 H 99 01/15/22 16:30 36.7 C 18 01/15/22 16:29 120 H 99 01/15/22 16:24 114 H 98 01/15/22 16:15 117 H 100 01/15/22 16:10 122 H 99 01/15/22 16:05 116 H 98 01/15/22 16:00 107 H 100 01/15/22 15:57 106 H 125/68 01/15/22 15:55 104 H 100 01/15/22 15:50 105 H 98 01/15/22 15:45 100 H 100 01/15/22 15:40 105 H 98 01/15/22 15:35 94 H 98 01/15/22 15:30 89 99 01/15/22 15:25 85 98 01/15/22 15:20 93 H 98 01/15/22 15:00 36.6 C 99 H 18 130/94 01/15/22 13:30 37.0 C 20 01/15/22 13:19 104 H 136/87 Coding Level of Care Code None Diagnoses Meconium in amniotic fluid P96.83 SROM (spontaneous rupture of membranes)
[2022-01-15] MEDS ORDERED: ACETAMINOPHEN 325 MG TAB PO PRN (21:46)
[2022-01-15] MEDS ORDERED: NURSING L&D Epidural Breakthrough Pain Update ONE (23:27)
[2022-01-16] MEDS ORDERED: BUPIVACAINE 0.25% 30 ML VIAL ONE (00:22)
--- NOTE | 2022-01-16 00:28 | Labor Progress Brief Note ---
Date of Service January 16, 2022 Subjective had vomiting, noting some discomfort and helped with her epidural Assessment & Plan (1) Meconium in amniotic fluid: (2) SROM (spontaneous rupture of membranes): Plan: dose epidural. Anticipate . meconium. Fetus overall reassuring. Admission and Anticipated Discharge Date Admission Date: January 15, 2022 Physical Exam Physical Exam: cx--9/+1 per nursing toco--q2-4min efm--150 with mod variability, variable/early with contractions. Results & Data ([facility]) Vital Signs (Past 12 Hours) Vital Signs Temp Pulse Resp BP Pulse Ox 01/16/22 00:24 114 H 97 01/16/22 00:19 127 H 98 01/16/22 00:14 125 H 98 01/16/22 00:11 121 H 135/86 01/16/22 00:09 127 H 98 01/16/22 00:04 135 H 98 01/15/22 23:59 117 H 99 01/15/22 23:56 113 H 144/91 H 01/15/22 23:54 113 H 98 01/15/22 23:49 126 H 97 01/15/22 23:44 124 H 98 01/15/22 23:42 113 H 143/85 H 01/15/22 23:39 114 H 99 01/15/22 23:34 111 H 99 01/15/22 23:30 18 01/15/22 23:29 114 H 99 01/15/22 23:26 113 H 142/91 H 01/15/22 23:24 117 H 98 01/15/22 23:19 117 H 97 01/15/22 23:14 113 H 98 01/15/22 23:11 121 H 144/97 H 01/15/22 23:09 115 H 97 01/15/22 23:04 112 H 97 01/15/22 23:00 18 01/15/22 22:59 113 H 98 01/15/22 22:57 107 H 144/92 H 01/15/22 22:54 110 H 99 01/15/22 22:49 113 H 99 01/15/22 22:44 111 H 99 01/15/22 22:41 113 H 145/90 H 01/15/22 22:39 115 H 97 01/15/22 22:34 114 H 100 01/15/22 22:30 18 01/15/22 22:29 36.9 C 117 H 18 98 01/15/22 22:27 115 H 141/89 H 01/15/22 22:24 112 H 98 01/15/22 22:19 95 H 98 01/15/22 22:14 95 H 98 01/15/22 22:12 107 H 121/72 01/15/22 22:09 100 H 98 01/15/22 22:04 110 H 98 01/15/22 22:00 16 01/15/22 21:59 106 H 98 01/15/22 21:57 102 H 122/66 01/15/22 21:54 110 H 98 01/15/22 21:49 101 H 97 01/15/22 21:44 98 H 99 01/15/22 21:41 96 H 112/58 L 01/15/22 21:39 86 98 01/15/22 21:34 100 H 98 01/15/22 21:30 16 01/15/22 21:29 99 H 97 01/15/22 21:27 100 H 137/96 01/15/22 21:24 108 H 97 01/15/22 21:19 94 H 97 01/15/22 21:14 94 H 97 01/15/22 21:12 93 H 131/79 01/15/22 21:09 91 H 97 01/15/22 21:04 94 H 97 01/15/22 21:00 16 01/15/22 20:59 105 H 97 01/15/22 20:56 105 H 134/81 01/15/22 20:54 102 H 98 01/15/22 20:49 105 H 98 01/15/22 20:44 100 H 98 01/15/22 20:41 114 H 130/89 01/15/22 20:39 101 H 98 01/15/22 20:35 37.3 C 01/15/22 20:34 108 H 98 01/15/22 20:30 18 01/15/22 20:29 103 H 97 01/15/22 20:27 106 H 136/84 01/15/22 20:24 108 H 98 01/15/22 20:19 107 H 98 01/15/22 20:14 108 H 98 01/15/22 20:12 96 H 118/64 01/15/22 20:09 109 H 98 01/15/22 20:04 108 H 99 01/15/22 20:00 18 01/15/22 19:59 102 H 98 01/15/22 19:57 101 H 116/66 01/15/22 19:54 102 H 98 01/15/22 19:49 99 H 98 01/15/22 19:44 95 H 98 01/15/22 19:42 108 H 116/76 01/15/22 19:39 102 H 100 01/15/22 19:34 109 H 98 01/15/22 19:30 18 01/15/22 19:29 108 H 99 01/15/22 19:27 98 H 117/69 01/15/22 19:24 98 H 98 01/15/22 19:19 100 H 98 01/15/22 19:14 104 H 99 01/15/22 19:12 114 H 131/72 01/15/22 19:10 36.4 C L 18 01/15/22 19:09 111 H 99 01/15/22 19:07 36.4 C L 18 01/15/22 19:04 97 H 99 01/15/22 18:59 103 H 99 01/15/22 18:56 105 H 123/66 01/15/22 18:54 96 H 99 01/15/22 18:49 102 H 99 01/15/22 18:44 102 H 99 01/15/22 18:41 108 H 112/62 01/15/22 18:39 117 H 99 01/15/22 18:34 104 H 99 01/15/22 18:33 36.9 C 18 01/15/22 18:29 93 H 99 01/15/22 18:27 99 H 120/64 01/15/22 18:24 107 H 99 01/15/22 18:19 107 H 99 01/15/22 18:14 99 H 98 01/15/22 18:12 98 H 124/64 01/15/22 18:09 112 H 99 01/15/22 18:04 111 H 99 01/15/22 17:59 103 H 98 01/15/22 17:56 109 H 107/60 01/15/22 17:54 107 H 98 01/15/22 17:49 105 H 99 01/15/22 17:44 130 H 99 05/29/22 17:41 122 H 101/55 L 01/15/22 17:40 37.2 C 16 01/15/22 17:39 117 H 99/54 L 99 01/15/22 17:37 130 H 94/54 L 01/15/22 17:35 123 H 102/58 L 01/15/22 17:34 122 H 98 01/15/22 17:33 116 H 107/57 L 01/15/22 17:31 113 H 108/59 L 01/15/22 17:29 102 H 97/49 L 98 01/15/22 17:26 134 H 91/53 L 01/15/22 17:25 123 H 101/56 L 01/15/22 17:24 125 H 101/50 L 99 01/15/22 17:19 145 H 98 01/15/22 17:15 151 H 131/68 01/15/22 17:14 137 H 98 01/15/22 17:09 140 H 98 01/15/22 17:04 127 H 98 01/15/22 16:59 129 H 98 01/15/22 16:54 126 H 99 01/15/22 16:49 120 H 99 01/15/22 16:44 119 H 99 01/15/22 16:39 128 H 99 01/15/22 16:34 121 H 99 01/15/22 16:30 36.7 C 18 01/15/22 16:29 120 H 99 01/15/22 16:24 114 H 98 01/15/22 16:15 117 H 100 01/15/22 16:10 122 H 99 01/15/22 16:05 116 H 98 01/15/22 16:00 107 H 100 01/15/22 15:57 106 H 125/68 01/15/22 15:55 104 H 100 01/15/22 15:50 105 H 98 01/15/22 15:45 100 H 100 01/15/22 15:40 105 H 98 01/15/22 15:35 94 H 98 01/15/22 15:30 89 99 01/15/22 15:25 85 98 01/15/22 15:20 93 H 98 01/15/22 15:00 36.6 C 99 H 18 130/94 01/15/22 13:30 37.0 C 20 05/29/22 13:19 104 H 136/87 Coding Level of Care Code None Diagnoses Meconium in amniotic fluid P96.83 SROM (spontaneous rupture of membranes)
--- NOTE | 2022-01-16 00:31 | Communication Note ---
Date of Service: January 16, 2022 increasing pain. patient is 9cm. bolused with 8cc of 0.25% bupivicaine. pain is improving. will continue epidural at current settings.
--- NOTE | 2022-01-16 01:18 | Labor Progress Brief Note ---
Date of Service January 16, 2022 Subjective feeling rectal pressure with contractions Assessment & Plan (1) SROM (spontaneous rupture of membranes): (2) Meconium in amniotic fluid: Plan: a bit concerned as she has been 9 for a couple of hours. has made all this progress independently. recheck in an hour . Consider pitocin if still 9. Fetus overall reassuring with variable/early with contractions Admission and Anticipated Discharge Date Admission Date: January 15, 2022 Physical Exam Physical Exam: cx--9/100/0 toco--q2-3 min efm--150s wtih mod variabiltiy, variables with contractions. Results & Data ([facility]) Vital Signs (Past 12 Hours) Vital Signs Temp Pulse Resp BP Pulse Ox 01/16/22 01:14 118 H 97 01/16/22 01:09 121 H 96 01/16/22 01:04 109 H 96 01/16/22 01:00 16 01/16/22 00:59 119 H 97 01/16/22 00:58 115 H 134/85 01/16/22 00:56 109 H 141/83 H 01/16/22 00:54 119 H 143/79 H 97 01/16/22 00:52 121 H 138/83 01/16/22 00:50 113 H 136/86 01/16/22 00:49 112 H 97 01/16/22 00:48 108 H 138/89 01/16/22 00:46 118 H 133/87 01/16/22 00:44 110 H 148/88 H 97 01/16/22 00:42 106 H 145/80 H 01/16/22 00:40 218 H 138/84 01/16/22 00:39 112 H 98 01/16/22 00:38 114 H 136/83 01/16/22 00:36 113 H 145/86 H 01/16/22 00:34 131 H 130/81 97 01/16/22 00:32 114 H 142/85 H 01/16/22 00:31 36.9 C 01/16/22 00:30 117 H 20 133/88 01/16/22 00:29 120 H 97 01/16/22 00:28 117 H 136/86 01/16/22 00:26 118 H 142/93 H 01/16/22 00:24 114 H 97 01/16/22 00:19 127 H 98 01/16/22 00:14 125 H 98 01/16/22 00:11 121 H 135/86 01/16/22 00:09 127 H 98 01/16/22 00:04 135 H 98 01/16/22 00:00 18 01/15/22 23:59 117 H 99 01/15/22 23:56 113 H 144/91 H 01/15/22 23:54 113 H 98 01/15/22 23:49 126 H 97 01/15/22 23:44 124 H 98 01/15/22 23:42 113 H 143/85 H 01/15/22 23:39 114 H 99 01/15/22 23:34 111 H 99 01/15/22 23:30 18 01/15/22 23:29 114 H 99 01/15/22 23:26 113 H 142/91 H 01/15/22 23:24 117 H 98 01/15/22 23:19 117 H 97 01/15/22 23:14 113 H 98 01/15/22 23:11 121 H 144/97 H 01/15/22 23:09 115 H 97 01/15/22 23:04 112 H 97 01/15/22 23:00 18 01/15/22 22:59 113 H 98 01/15/22 22:57 107 H 144/92 H 01/15/22 22:54 110 H 99 01/15/22 22:49 113 H 99 01/15/22 22:44 111 H 99 01/15/22 22:41 113 H 145/90 H 01/15/22 22:39 115 H 97 01/15/22 22:34 114 H 100 01/15/22 22:30 18 01/15/22 22:29 36.9 C 117 H 18 98 01/15/22 22:27 115 H 141/89 H 01/15/22 22:24 112 H 98 01/15/22 22:19 95 H 98 01/15/22 22:14 95 H 98 01/15/22 22:12 107 H 121/72 01/15/22 22:09 100 H 98 01/15/22 22:04 110 H 98 01/15/22 22:00 16 01/15/22 21:59 106 H 98 01/15/22 21:57 102 H 122/66 01/15/22 21:54 110 H 98 01/15/22 21:49 101 H 97 01/15/22 21:44 98 H 99 01/15/22 21:41 96 H 112/58 L 01/15/22 21:39 86 98 01/15/22 21:34 100 H 98 01/15/22 21:30 16 01/15/22 21:29 99 H 97 01/15/22 21:27 100 H 137/96 01/15/22 21:24 108 H 97 01/15/22 21:19 94 H 97 01/15/22 21:14 94 H 97 01/15/22 21:12 93 H 131/79 01/15/22 21:09 91 H 97 01/15/22 21:04 94 H 97 01/15/22 21:00 16 01/15/22 20:59 105 H 97 01/15/22 20:56 105 H 134/81 01/15/22 20:54 102 H 98 01/15/22 20:49 105 H 98 01/15/22 20:44 100 H 98 01/15/22 20:41 114 H 130/89 01/15/22 20:39 101 H 98 01/15/22 20:35 37.3 C 01/15/22 20:34 108 H 98 01/15/22 20:30 18 01/15/22 20:29 103 H 97 01/15/22 20:27 106 H 136/84 01/15/22 20:24 108 H 98 01/15/22 20:19 107 H 98 01/15/22 20:14 108 H 98 01/15/22 20:12 96 H 118/64 01/15/22 20:09 109 H 98 01/15/22 20:04 108 H 99 01/15/22 20:00 18 01/15/22 19:59 102 H 98 01/15/22 19:57 101 H 116/66 01/15/22 19:54 102 H 98 01/15/22 19:49 99 H 98 01/15/22 19:44 95 H 98 01/15/22 19:42 108 H 116/76 01/15/22 19:39 102 H 100 01/15/22 19:34 109 H 98 01/15/22 19:30 18 01/15/22 19:29 108 H 99 01/15/22 19:27 98 H 117/69 01/15/22 19:24 98 H 98 01/15/22 19:19 100 H 98 01/15/22 19:14 104 H 99 01/15/22 19:12 114 H 131/72 01/15/22 19:10 36.4 C L 18 01/15/22 19:09 111 H 99 01/15/22 19:07 36.4 C L 18 01/15/22 19:04 97 H 99 01/15/22 18:59 103 H 99 01/15/22 18:56 105 H 123/66 01/15/22 18:54 96 H 99 01/15/22 18:49 102 H 99 01/15/22 18:44 102 H 99 01/15/22 18:41 108 H 112/62 01/15/22 18:39 117 H 99 01/15/22 18:34 104 H 99 01/15/22 18:33 36.9 C 18 01/15/22 18:29 93 H 99 01/15/22 18:27 99 H 120/64 01/15/22 18:24 107 H 99 01/15/22 18:19 107 H 99 01/15/22 18:14 99 H 98 01/15/22 18:12 98 H 124/64 01/15/22 18:09 112 H 99 01/15/22 18:04 111 H 99 01/15/22 17:59 103 H 98 01/15/22 17:56 109 H 107/60 01/15/22 17:54 107 H 98 01/15/22 17:49 105 H 99 01/15/22 17:44 130 H 99 01/15/22 17:41 122 H 101/55 L 01/15/22 17:40 37.2 C 16 01/15/22 17:39 117 H 99/54 L 99 01/15/22 17:37 130 H 94/54 L 01/15/22 17:35 123 H 102/58 L 01/15/22 17:34 122 H 98 01/15/22 17:33 116 H 107/57 L 01/15/22 17:31 113 H 108/59 L 01/15/22 17:29 102 H 97/49 L 98 01/15/22 17:26 134 H 91/53 L 01/15/22 17:25 123 H 101/56 L 01/15/22 17:24 125 H 101/50 L 99 01/15/22 17:19 145 H 98 01/15/22 17:15 151 H 131/68 01/15/22 17:14 137 H 98 01/15/22 17:09 140 H 98 01/15/22 17:04 127 H 98 01/15/22 16:59 129 H 98 01/15/22 16:54 126 H 99 01/15/22 16:49 120 H 99 01/15/22 16:44 119 H 99 01/15/22 16:39 128 H 99 01/15/22 16:34 121 H 99 01/15/22 16:30 36.7 C 18 01/15/22 16:29 120 H 99 01/15/22 16:24 114 H 98 01/15/22 16:15 117 H 100 01/15/22 16:10 122 H 99 01/15/22 16:05 116 H 98 01/15/22 16:00 107 H 100 01/15/22 15:57 106 H 125/68 01/15/22 15:55 104 H 100 01/15/22 15:50 105 H 98 01/15/22 15:45 100 H 100 01/15/22 15:40 105 H 98 01/15/22 15:35 94 H 98 01/15/22 15:30 89 99 01/15/22 15:25 85 98 01/15/22 15:20 93 H 98 01/15/22 15:00 36.6 C 99 H 18 130/94 01/15/22 13:30 37.0 C 20 01/15/22 13:19 104 H 136/87 Coding Level of Care Code None Diagnoses SROM (spontaneous rupture of membranes) Meconium in amniotic fluid P96.83
[2022-01-16] MEDS: LACTATED RINGER'S 1,000 ML IV PRN (01:21)
--- NOTE | 2022-01-16 02:46 | Labor Progress Brief Note ---
Date of Service January 16, 2022 Subjective Patient notes lots of rectal pressure, wants to push. Assessment & Plan (1) Meconium in amniotic fluid: (2) SROM (spontaneous rupture of membranes): (3) 40 weeks gestation of : Plan: Discussed situation with the patient. Has been 9/0-+1 for the last 4+ hours. Attempted to reduce/push past without success. Given this, I suspect cpd. Discussed with patient and her . They agree to proceed. r/b/se discussed and consent reviewed and signed. Admission and Anticipated Discharge Date Admission Date: January 15, 2022 Physical Exam Physical Exam: cx--/0 EFM--150s with mod variabiltiy, small accels, variables with contractions. toco--q 2=3 min Attempted to push and reduce the lip, tried over about 4 contractions, and was unable to reduce. Patient did push with good effort and vertex really did not move. Results & Data ([facility]) Vital Signs (Past 12 Hours) Vital Signs Temp Pulse Resp BP Pulse Ox 01/16/22 02:39 114 H 97 01/16/22 02:34 118 H 98 01/16/22 02:29 118 H 98 01/16/22 02:25 37.1 C 01/16/22 02:24 114 H 99 01/16/22 02:19 107 H 98 01/16/22 02:15 106 H 124/70 01/16/22 02:14 107 H 99 01/16/22 02:12 106 H 93 01/16/22 02:09 108 H 97 01/16/22 02:04 105 H 94 01/16/22 02:00 105 H 18 122/69 01/16/22 01:59 106 H 95 01/16/22 01:54 106 H 98 01/16/22 01:49 108 H 98 01/16/22 01:45 104 H 123/71 01/16/22 01:44 105 H 97 01/16/22 01:39 108 H 98 01/16/22 01:34 108 H 98 01/16/22 01:30 103 H 18 127/71 01/16/22 01:29 104 H 99 01/16/22 01:24 106 H 98 01/16/22 01:19 107 H 98 01/16/22 01:14 118 H 97 01/16/22 01:09 121 H 96 01/16/22 01:04 109 H 96 01/16/22 01:00 16 01/16/22 00:59 119 H 97 01/16/22 00:58 115 H 134/85 01/16/22 00:56 109 H 141/83 H 01/16/22 00:54 119 H 143/79 H 97 01/16/22 00:52 121 H 138/83 01/16/22 00:50 113 H 136/86 01/16/22 00:49 112 H 97 01/16/22 00:48 108 H 138/89 01/16/22 00:46 118 H 133/87 01/16/22 00:44 110 H 148/88 H 97 01/16/22 00:42 106 H 145/80 H 01/16/22 00:40 218 H 138/84 01/16/22 00:39 112 H 98 01/16/22 00:38 114 H 136/83 01/16/22 00:36 113 H 145/86 H 01/16/22 00:34 131 H 130/81 97 01/16/22 00:32 114 H 142/85 H 01/16/22 00:31 36.9 C 01/16/22 00:30 117 H 20 133/88 01/16/22 00:29 120 H 97 01/16/22 00:28 117 H 136/86 01/16/22 00:26 118 H 142/93 H 01/16/22 00:24 114 H 97 01/16/22 00:19 127 H 98 01/16/22 00:14 125 H 98 01/16/22 00:11 121 H 135/86 01/16/22 00:09 127 H 98 01/16/22 00:04 135 H 98 01/16/22 00:00 18 01/15/22 23:59 117 H 99 01/15/22 23:56 113 H 144/91 H 01/15/22 23:54 113 H 98 01/15/22 23:49 126 H 97 01/15/22 23:44 124 H 98 01/15/22 23:42 113 H 143/85 H 01/15/22 23:39 114 H 99 01/15/22 23:34 111 H 99 01/15/22 23:30 18 01/15/22 23:29 114 H 99 01/15/22 23:26 113 H 142/91 H 01/15/22 23:24 117 H 98 01/15/22 23:19 117 H 97 01/15/22 23:14 113 H 98 01/15/22 23:11 121 H 144/97 H 01/15/22 23:09 115 H 97 01/15/22 23:04 112 H 97 01/15/22 23:00 18 01/15/22 22:59 113 H 98 01/15/22 22:57 107 H 144/92 H 01/15/22 22:54 110 H 99 01/15/22 22:49 113 H 99 01/15/22 22:44 111 H 99 01/15/22 22:41 113 H 145/90 H 01/15/22 22:39 115 H 97 01/15/22 22:34 114 H 100 01/15/22 22:30 18 01/15/22 22:29 36.9 C 117 H 18 98 01/15/22 22:27 115 H 141/89 H 01/15/22 22:24 112 H 98 01/15/22 22:19 95 H 98 01/15/22 22:14 95 H 98 01/15/22 22:12 107 H 121/72 01/15/22 22:09 100 H 98 01/15/22 22:04 110 H 98 01/15/22 22:00 16 01/15/22 21:59 106 H 98 01/15/22 21:57 102 H 122/66 01/15/22 21:54 110 H 98 01/15/22 21:49 101 H 97 01/15/22 21:44 98 H 99 01/15/22 21:41 96 H 112/58 L 01/15/22 21:39 86 98 01/15/22 21:34 100 H 98 01/15/22 21:30 16 01/15/22 21:29 99 H 97 01/15/22 21:27 100 H 137/96 01/15/22 21:24 108 H 97 01/15/22 21:19 94 H 97 01/15/22 21:14 94 H 97 01/15/22 21:12 93 H 131/79 01/15/22 21:09 91 H 97 01/15/22 21:04 94 H 97 01/15/22 21:00 16 01/15/22 20:59 105 H 97 01/15/22 20:56 105 H 134/81 01/15/22 20:54 102 H 98 01/15/22 20:49 105 H 98 01/15/22 20:44 100 H 98 01/15/22 20:41 114 H 130/89 01/15/22 20:39 101 H 98 01/15/22 20:35 37.3 C 01/15/22 20:34 108 H 98 01/15/22 20:30 18 01/15/22 20:29 103 H 97 01/15/22 20:27 106 H 136/84 01/15/22 20:24 108 H 98 01/15/22 20:19 107 H 98 01/15/22 20:14 108 H 98 01/15/22 20:12 96 H 118/64 01/15/22 20:09 109 H 98 01/15/22 20:04 108 H 99 01/15/22 20:00 18 01/15/22 19:59 102 H 98 01/15/22 19:57 101 H 116/66 01/15/22 19:54 102 H 98 01/15/22 19:49 99 H 98 01/15/22 19:44 95 H 98 01/15/22 19:42 108 H 116/76 01/15/22 19:39 102 H 100 01/15/22 19:34 109 H 98 01/15/22 19:30 18 01/15/22 19:29 108 H 99 01/15/22 19:27 98 H 117/69 01/15/22 19:24 98 H 98 01/15/22 19:19 100 H 98 01/15/22 19:14 104 H 99 01/15/22 19:12 114 H 131/72 01/15/22 19:10 36.4 C L 18 01/15/22 19:09 111 H 99 01/15/22 19:07 36.4 C L 18 01/15/22 19:04 97 H 99 01/15/22 18:59 103 H 99 01/15/22 18:56 105 H 123/66 01/15/22 18:54 96 H 99 01/15/22 18:49 102 H 99 01/15/22 18:44 102 H 99 01/15/22 18:41 108 H 112/62 01/15/22 18:39 117 H 99 01/15/22 18:34 104 H 99 01/15/22 18:33 36.9 C 18 01/15/22 18:29 93 H 99 01/15/22 18:27 99 H 120/64 01/15/22 18:24 107 H 99 01/15/22 18:19 107 H 99 01/15/22 18:14 99 H 98 01/15/22 18:12 98 H 124/64 01/15/22 18:09 112 H 99 01/15/22 18:04 111 H 99 01/15/22 17:59 103 H 98 01/15/22 17:56 109 H 107/60 01/15/22 17:54 107 H 98 01/15/22 17:49 105 H 99 01/15/22 17:44 130 H 99 01/15/22 17:41 122 H 101/55 L 01/15/22 17:40 37.2 C 16 01/15/22 17:39 117 H 99/54 L 99 01/15/22 17:37 130 H 94/54 L 01/15/22 17:35 123 H 102/58 L 01/15/22 17:34 122 H 98 01/15/22 17:33 116 H 107/57 L 01/15/22 17:31 113 H 108/59 L 01/15/22 17:29 102 H 97/49 L 98 01/15/22 17:26 134 H 91/53 L 01/15/22 17:25 123 H 101/56 L 01/15/22 17:24 125 H 101/50 L 99 01/15/22 17:19 145 H 98 01/15/22 17:15 151 H 131/68 01/15/22 17:14 137 H 98 01/15/22 17:09 140 H 98 01/15/22 17:04 127 H 98 01/15/22 16:59 129 H 98 01/15/22 16:54 126 H 99 01/15/22 16:49 120 H 99 01/15/22 16:44 119 H 99 01/15/22 16:39 128 H 99 01/15/22 16:34 121 H 99 01/15/22 16:30 36.7 C 18 01/15/22 16:29 120 H 99 01/15/22 16:24 114 H 98 01/15/22 16:15 117 H 100 01/15/22 16:10 122 H 99 01/15/22 16:05 116 H 98 01/15/22 16:00 107 H 100 01/15/22 15:57 106 H 125/68 01/15/22 15:55 104 H 100 01/15/22 15:50 105 H 98 01/15/22 15:45 100 H 100 01/15/22 15:40 105 H 98 01/15/22 15:35 94 H 98 01/15/22 15:30 89 99 01/15/22 15:25 85 98 01/15/22 15:20 93 H 98 01/15/22 15:00 36.6 C 99 H 18 130/94 Coding Level of Care Code None Diagnoses Meconium in amniotic fluid P96.83 SROM (spontaneous rupture of membranes) 40 weeks gestation of Z3A.40
[2022-01-16] MEDS ORDERED: GENTAMICIN CONSULT ACTIVE PRN (02:51)
[2022-01-16] MEDS ORDERED: MoRPHine SULFATE PF 1 MG/ML 10 ML AMP/VIAL ONE (03:18)
[2022-01-16] MEDS ORDERED: CITRIC ACID/SODIUM CITRATE 15 ML UDC PO ONE (03:30)
[2022-01-16] MEDS ORDERED: CLINDAMYCIN/D5W 900 MG/50 ML BAG IV ONE (03:30)
[2022-01-16] MEDS ORDERED: GENTAMICIN SULFATE 480 MG in DEXTROSE 5% 100 ML IV ONE (03:30)
[2022-01-16] MEDS ORDERED: ceFAZolin 2000MG 2,000 MG/15 ML SYR IV ONE (03:36)
[2022-01-16] MEDS ORDERED: KETOROLAC 30 MG/ML VIAL ONE (04:28)
[2022-01-16] MEDS ORDERED: OXYTOCIN 10 UNITS/ML 10ML VIAL ONE (04:28)
[2022-01-16] MEDS ORDERED: ONDANSETRON INJ 2 MG/ML 2 ML VIAL ONE (04:28)
[2022-01-16] MEDS ORDERED: SENNA 8.6 MG TAB PO PRN (04:38)
[2022-01-16] MEDS ORDERED: DIPHTHERIA/TETANUS/PERTUSSIS 0.5 ML SYR/VIAL IM ONE (04:38)
[2022-01-16] MEDS ORDERED: HYDROCORTISONE ACETATE 25 MG SUPP PR PRN (04:38)
[2022-01-16] MEDS ORDERED: BENZOCAINE 20% AER SPR 82.5 GM CAN EXT PRN (04:38)
[2022-01-16] MEDS ORDERED: MAGNESIUM HYDROXIDE SUSP 30 ML UDC PO PRN (04:38)
[2022-01-16] MEDS ORDERED: LACTATED RINGER'S 1,000 ML IV SCH (04:45)
--- NOTE | 2022-01-16 04:48 | Anesthesia Procedure Note ---
Date of Service January 16, 2022 Anesthesia Post Epidural Note Vital Signs Vital Signs: Temp Pulse Resp BP Pulse Ox 37.1 C 101 H 20 104/49 L 98 01/16/22 02:25 01/16/22 04:46 01/16/22 03:00 01/16/22 04:45 01/16/22 04:46 Pain Intensity Bilateral Abdomen: Pain Intensity: 7 Notes Mental Status: alert / awake / arousable Nausea / Vomiting: adequately controlled Pain: adequately controlled Airway Patency, RR, SpO2: stable & adequate BP & HR: stable & adequate Hydration State: stable & adequate Neuraxial Anesthesia: was administered and sensory block is resolving Anesthetic Complications: no major complications apparent and Pt Satisfied with anesthetic care Epidural: Removed without complications and With tip intact
[2022-01-16] MEDS ORDERED: NALOXONE HCL 0.08 MG in SYRINGE 1.8 ML IV PRN (04:49)
[2022-01-16] MEDS ORDERED: LACTATED RINGER'S 500 ML IV PRN (04:49)
[2022-01-16] MEDS ORDERED: PROMETHAZINE HCL 6.25 MG in SODIUM CHLORIDE 0.9% 50 ML IV PRN (04:49)
[2022-01-16] MEDS ORDERED: NALBUPHINE HCL INJ 10 MG/ML AMP IV PRN (04:49)
[2022-01-16] MEDS ORDERED: KETOROLAC 30 MG/ML VIAL IV PRN ×2 (04:49→22:50)
[2022-01-16] MEDS ORDERED: ePHEDrine sulfate 50 MG/ML AMP IV PRN (04:49)
[2022-01-16] MEDS ORDERED: ONDANSETRON INJ 2 MG/ML 2 ML VIAL IV PRN ×2 (04:49→22:50)
[2022-01-16] MEDS ORDERED: MoRPHine SULFATE PF 1 MG/ML 10 ML AMP/VIAL INT SPINAL ONE (04:49)
[2022-01-16] MEDS ORDERED: MoRPHine SULFATE 2 MG/ML CARP IV PRN (04:49)
[2022-01-16] MEDS ORDERED: NALOXONE HCL 1 MG in SODIUM CHLORIDE 0.9% 1000ML 1,000 ML IV PRN (04:49)
[2022-01-16] MEDS ORDERED: diphenhydrAMINE 50 MG/ML VIAL IV PRN ×2 (04:49→22:50)
[2022-01-16] MEDS ORDERED: HYDROmorphone INJ 0.5 MG/0.5 ML SYR IV PRN (04:49)
[2022-01-16] MEDS ORDERED: NALOXONE HCL 0.4 MG/1 ML VIAL/CARP IV PRN (04:49)
[2022-01-16] MEDS ORDERED: MEPERIDINE HCL 25 MG/ML CARP/VIAL IV PRN (04:49)
--- NOTE | 2022-01-16 04:49 | Anesthesiology Progress Note ---
Date of Service January 16, 2022 Anesthesia Post Procedure Vital Signs Vital Signs: Temp Pulse Resp BP Pulse Ox 01/16/22 04:46 101 H 98 01/16/22 04:45 101 H 104/49 L 01/16/22 04:41 106 H 99 01/16/22 03:15 118 H 133/75 01/16/22 03:14 118 H 96 01/16/22 03:09 112 H 97 01/16/22 03:04 116 H 96 01/16/22 03:00 109 H 20 141/84 H 01/16/22 02:59 110 H 98 01/16/22 02:54 115 H 98 01/16/22 02:49 124 H 98 01/16/22 02:45 114 H 136/86 01/16/22 02:44 108 H 97 01/16/22 02:39 114 H 97 01/16/22 02:34 118 H 98 01/16/22 02:30 20 01/16/22 02:29 118 H 98 01/16/22 02:25 37.1 C 01/16/22 02:24 114 H 99 01/16/22 02:19 107 H 98 01/16/22 02:15 106 H 124/70 01/16/22 02:14 107 H 99 01/16/22 02:12 106 H 93 01/16/22 02:09 108 H 97 01/16/22 02:04 105 H 94 01/16/22 02:00 105 H 18 122/69 01/16/22 01:59 106 H 95 01/16/22 01:54 106 H 98 01/16/22 01:49 108 H 98 01/16/22 01:45 104 H 123/71 01/16/22 01:44 105 H 97 01/16/22 01:39 108 H 98 01/16/22 01:34 108 H 98 01/16/22 01:30 103 H 18 127/71 01/16/22 01:29 104 H 99 01/16/22 01:24 106 H 98 01/16/22 01:19 107 H 98 01/16/22 01:14 118 H 97 01/16/22 01:09 121 H 96 01/16/22 01:04 109 H 96 01/16/22 01:00 16 01/16/22 00:59 119 H 97 01/16/22 00:58 115 H 134/85 01/16/22 00:56 109 H 141/83 H 01/16/22 00:54 119 H 143/79 H 97 01/16/22 00:52 121 H 138/83 01/16/22 00:50 113 H 136/86 01/16/22 00:49 112 H 97 01/16/22 00:48 108 H 138/89 01/16/22 00:46 118 H 133/87 01/16/22 00:44 110 H 148/88 H 97 01/16/22 00:42 106 H 145/80 H 01/16/22 00:40 218 H 138/84 01/16/22 00:39 112 H 98 01/16/22 00:38 114 H 136/83 01/16/22 00:36 113 H 145/86 H 01/16/22 00:34 131 H 130/81 97 01/16/22 00:32 114 H 142/85 H 01/16/22 00:31 36.9 C 01/16/22 00:30 117 H 20 133/88 01/16/22 00:29 120 H 97 01/16/22 00:28 117 H 136/86 01/16/22 00:26 118 H 142/93 H 01/16/22 00:24 114 H 97 01/16/22 00:19 127 H 98 01/16/22 00:14 125 H 98 01/16/22 00:11 121 H 135/86 01/16/22 00:09 127 H 98 01/16/22 00:04 135 H 98 01/16/22 00:00 18 01/15/22 23:59 117 H 99 01/15/22 23:56 113 H 144/91 H 01/15/22 23:54 113 H 98 01/15/22 23:49 126 H 97 01/15/22 23:44 124 H 98 01/15/22 23:42 113 H 143/85 H 01/15/22 23:39 114 H 99 01/15/22 23:34 111 H 99 01/15/22 23:30 18 01/15/22 23:29 114 H 99 01/15/22 23:26 113 H 142/91 H 01/15/22 23:24 117 H 98 01/15/22 23:19 117 H 97 01/15/22 23:14 113 H 98 01/15/22 23:11 121 H 144/97 H 01/15/22 23:09 115 H 97 01/15/22 23:04 112 H 97 01/15/22 23:00 18 01/15/22 22:59 113 H 98 01/15/22 22:57 107 H 144/92 H 01/15/22 22:54 110 H 99 01/15/22 22:49 113 H 99 01/15/22 22:44 111 H 99 01/15/22 22:41 113 H 145/90 H 01/15/22 22:39 115 H 97 01/15/22 22:34 114 H 100 01/15/22 22:30 18 01/15/22 22:29 36.9 C 117 H 18 98 01/15/22 22:27 115 H 141/89 H 01/15/22 22:24 112 H 98 01/15/22 22:19 95 H 98 01/15/22 22:14 95 H 98 01/15/22 22:12 107 H 121/72 01/15/22 22:09 100 H 98 01/15/22 22:04 110 H 98 01/15/22 22:00 16 01/15/22 21:59 106 H 98 01/15/22 21:57 102 H 122/66 01/15/22 21:54 110 H 98 01/15/22 21:49 101 H 97 01/15/22 21:44 98 H 99 01/15/22 21:41 96 H 112/58 L 01/15/22 21:39 86 98 01/15/22 21:34 100 H 98 01/15/22 21:30 16 01/15/22 21:29 99 H 97 01/15/22 21:27 100 H 137/96 01/15/22 21:24 108 H 97 01/15/22 21:19 94 H 97 01/15/22 21:14 94 H 97 01/15/22 21:12 93 H 131/79 01/15/22 21:09 91 H 97 01/15/22 21:04 94 H 97 01/15/22 21:00 16 01/15/22 20:59 105 H 97 01/15/22 20:56 105 H 134/81 01/15/22 20:54 102 H 98 01/15/22 20:49 105 H 98 01/15/22 20:44 100 H 98 01/15/22 20:41 114 H 130/89 01/15/22 20:39 101 H 98 01/15/22 20:35 37.3 C 01/15/22 20:34 108 H 98 01/15/22 20:30 18 01/15/22 20:29 103 H 97 01/15/22 20:27 106 H 136/84 01/15/22 20:24 108 H 98 01/15/22 20:19 107 H 98 01/15/22 20:14 108 H 98 01/15/22 20:12 96 H 118/64 01/15/22 20:09 109 H 98 01/15/22 20:04 108 H 99 01/15/22 20:00 18 01/15/22 19:59 102 H 98 01/15/22 19:57 101 H 116/66 01/15/22 19:54 102 H 98 01/15/22 19:49 99 H 98 01/15/22 19:44 95 H 98 01/15/22 19:42 108 H 116/76 01/15/22 19:39 102 H 100 01/15/22 19:34 109 H 98 01/15/22 19:30 18 01/15/22 19:29 108 H 99 01/15/22 19:27 98 H 117/69 01/15/22 19:24 98 H 98 01/15/22 19:19 100 H 98 01/15/22 19:14 104 H 99 01/15/22 19:12 114 H 131/72 01/15/22 19:10 36.4 C L 18 01/15/22 19:09 111 H 99 01/15/22 19:07 36.4 C L 18 01/15/22 19:04 97 H 99 01/15/22 18:59 103 H 99 01/15/22 18:56 105 H 123/66 01/15/22 18:54 96 H 99 01/15/22 18:49 102 H 99 01/15/22 18:44 102 H 99 01/15/22 18:41 108 H 112/62 01/15/22 18:39 117 H 99 01/15/22 18:34 104 H 99 01/15/22 18:33 36.9 C 18 01/15/22 18:29 93 H 99 01/15/22 18:27 99 H 120/64 01/15/22 18:24 107 H 99 01/15/22 18:19 107 H 99 01/15/22 18:14 99 H 98 01/15/22 18:12 98 H 124/64 01/15/22 18:09 112 H 99 01/15/22 18:04 111 H 99 01/15/22 17:59 103 H 98 01/15/22 17:56 109 H 107/60 01/15/22 17:54 107 H 98 01/15/22 17:49 105 H 99 01/15/22 17:44 130 H 99 01/15/22 17:41 122 H 101/55 L 01/15/22 17:40 37.2 C 16 01/15/22 17:39 117 H 99/54 L 99 01/15/22 17:37 130 H 94/54 L 01/15/22 17:35 123 H 102/58 L 01/15/22 17:34 122 H 98 01/15/22 17:33 116 H 107/57 L 01/15/22 17:31 113 H 108/59 L 01/15/22 17:29 102 H 97/49 L 98 01/15/22 17:26 134 H 91/53 L 01/15/22 17:25 123 H 101/56 L 01/15/22 17:24 125 H 101/50 L 99 01/15/22 17:19 145 H 98 01/15/22 17:15 151 H 131/68 01/15/22 17:14 137 H 98 01/15/22 17:09 140 H 98 01/15/22 17:04 127 H 98 01/15/22 16:59 129 H 98 01/15/22 16:54 126 H 99 01/15/22 16:49 120 H 99 01/15/22 16:44 119 H 99 01/15/22 16:39 128 H 99 01/15/22 16:34 121 H 99 01/15/22 16:30 36.7 C 18 01/15/22 16:29 120 H 99 01/15/22 16:24 114 H 98 01/15/22 16:15 117 H 100 01/15/22 16:10 122 H 99 01/15/22 16:05 116 H 98 01/15/22 16:00 107 H 100 01/15/22 15:57 106 H 125/68 01/15/22 15:55 104 H 100 01/15/22 15:50 105 H 98 01/15/22 15:45 100 H 100 01/15/22 15:40 105 H 98 01/15/22 15:35 94 H 98 01/15/22 15:30 89 99 01/15/22 15:25 85 98 01/15/22 15:20 93 H 98 01/15/22 15:00 36.6 C 99 H 18 130/94 01/15/22 13:30 37.0 C 20 01/15/22 13:19 104 H 136/87 Pain Intensity Bilateral Abdomen: Pain Intensity: 7 Transfer of Care Handoff Completed per policy Notes Mental Status: alert / awake / arousable Nausea / Vomiting: adequately controlled Pain: adequately controlled Airway Patency, RR, SpO2: stable & adequate BP & HR: stable & adequate Hydration State: stable & adequate Neuraxial Anesthesia: was administered and sensory block is resolving Anesthetic Complications: no major complications apparent
[2022-01-16] MEDS ORDERED: NO NARCOTICS OR SEDATIVES SCH (05:00)
[2022-01-16] MEDS ORDERED: DC INTRASPINAL MORPHINE SCH (05:00)
[2022-01-16] MEDS ORDERED: SODIUM CHLORIDE 0.9% 1000ML 1,000 ML IV SCH (05:00)
--- NOTE | 2022-01-16 05:06 | Operative Report ---
PG Post Operative Report Pre & Post Diagnosis Operation Date: 01/16/22 02:45 Pre-Op Diagnosis: 1. at 40.4 weeks 2. Failure to progress 3. Probable CPD Post-Op Diagnosis: 1. at 40.4 weeks 2. Failure to progress 3. CPD 4. Left cervical extension I identified the patient and participated in the time-out.: Yes Procedure Operation Date: 01/16/22 02:45 Actual Procedures p Primary low transverse Section with T extension in LD for delivery of live male at 0348 - Ronit Acosta MD, FACOG Surgeon Ronit Acosta MD, FACOG [employer] Ashlie Kitchen RN Estimated Blood Loss 800 Findings Consistent with Post-Op Diagnosis viable male infant in cephalic presentation curt, wedged into pelvis, anterior arm and shoulder prolapsed through incision necessitating T-ing of the uterine incision to replace in order to deliver the head. thick meconium on entering the uterus. Fluids 1400cc, uop 100cc--concentrated and blood tinged. Specimens placenta, cord blood Drains moses Anesthesia Type Spinal Complications extension of uterine incision into the left cervix, T-ing of the incision Disposition Accompanied Patient To Recovery: Yes Disposition: L&D Indications 31yo f, with iup at 40 4/7 weeks who presented to labor and delivery with prom and meconium stained fluid. Patient got one dose of po cytotec and then eventually got an epidural. She then progressed spontaneously to 9/100/0- +1. She remained like this for over 4 hours. We tried to push past the cervix but were unsuccessful despite good effort. Decision made to proceed with c- section for FTP/likely CPD. Description of Procedure The patient was taken to the operating room where she was identified verbally and by bracelet. She was seated on the operating table where her epidural was removed and a spinal anesthetic was placed by anesthesia. She was then placed in the supine position with a leftward tilt. A Moses catheter had been placed sterilely. the patient was prepped and draped in a normal standard fashion. the anesthetic was tested and found to be adequate. A time-out was held, identifying correct patient, procedure, positioning and preoperative antibiotics. There were no concerns. A Pfannenstiel skin incision was made with a knife and taken down to the underlying layer of fascia with the knife and Bovie electrocautery. Bleeding was attended to with the Bovie. The fascia was incised in the midline with the knife and taken out laterally with scissors. The superior edge of the fascial incision was grasped, elevated and the underlying layer of rectus muscle was taken off bluntly and with scissors. In a similar fashion, the inferior edge of the fascial incision was grasped, elevated and the underlying layer of rectus muscle was taken off bluntly and with scissors. The muscles were bluntly and sharply in the midline. The peritoneum was entered bluntly. The incision was then stretched. The bladder blade was placed. The vesicouterine peritoneum was identified, entered with scissors and taken out laterally with scissors. The bladder flap was created digitally A hysterotomy incision was scored with a knife and the incision was stretched superiorly and inferiorly with the cnc laser operator's fingers. Thick meconium was noted. The operators hand was placed into the incision and unfortunately the left arm to shoulder delivered. Tried to get the head out of the pelvis with this arm out but was unable to do so. Tried to reduce the arm back into the uterus and was unable to do so. Needed to T the uterine incision in order to replace the arm. Once that was successful, was able to get the head unwedged from the pelvis and delivered through the incision. No nuchal cord. The nose and mouth were bulb suctioned. the rest of the infant was then delivered without difficulty. The nose and mouth were again bulb suctioned. The cord was clamped and cut and the infant was then handed off to the awaiting product safety consultant for drying and attention. Cord blood and segment were obtained. The placenta was Manually extracted. The uterus was exteriorized and cleared of all clot and debris with moistened laparotomy sponges. There was a complicated hysterotomy incision and extension. We started my marking the right corner and following the lower edge with T-clamps. A left cervical extension was identified and the corner was located and marked with an allis. The bladder was found to be well clear of the incision and extension and was held back with a bladder blade. Using 0 Vicryl the incision was closed to the midline where the T was made. Then starting from the right corner, the incision was closed incorporating the T portion which did not axle turner to be significant. This was continued in an imbricating fashion back to the left. Several sutures were needed in the left corner at the edge of the hysterotomy incision where the uterine artery entered to control bleeding which included the uterine artery. Posterior cul-de-sac was irrigated and cleared of all clot and debris. The hysterotomy incision was again inspected and several more sutures were needed in the left side secondary to oozing of the incision. Another imbricating layer was placed starting at the right side and incorporating the T portion, ending just slightly to the right of the area that had been bleeding at the left corner. Pressure was then applied to the left side of the incision for several minutes. The uterine incision then appeared to be fairly hemostatic. The uterus was reinteriorized. ON inspection, there continued to be active bleeding in the area of the left corner. Two more figure of eight sutures were placed in the left edge of the incision and at the apex of the cervical extension which were effective in stopping this bleeding. Pressure was then held again for several minutes as the patient vomited. On reinspection, the incision appeared hemostatic. Aristia was placed in the area of the cervical extension and at the area where the uterine artery was involved in the incision. Pressure was held for several minutes. On reinspection over several minutes time, there was very little bleeding from this area and it appeared hemostatic. Decision was made to proceed with closing. Rectus muscles were reapproximated with one interrupted stitch of 0 Vicryl at the caudal portion. The fascia was then reapproximated with 0 Vicryl starting at the edges and meeting in the midline. The subcuticular tissues were copiously irrigated and bleeding was attended to with cautery. The skin was then closed with benny. I attest to the content of the Intraoperative Record and any orders documented therein. Any exceptions are noted below.
[2022-01-16] MEDS: OXYTOCIN 20 UNITS in LACTATED RINGER'S 1,000 ML IV SCH ×2 (05:45→12:57)
[2022-01-16 06:00] LABS: Basophils # (auto) 0.01 K/uL (0-0.2); Hematocrit (blood only) 33.7 % (37-47); Hemoglobin 10.9 g/dL (12.0-16.0); Immature Granulocytes # (auto) 0.11 K/uL (0.00-0.02); Immature Granulocytes % (auto) 0.5 %; Lymphocytes # (auto) 0.82 K/uL (1.2-3.4); Mean Corpuscular Hemoglobin 27.5 pg (25-34); Mean Corpuscular Hgb Conc 32.3 g/dL (32-36); Mean Corpuscular Volume 85.1 fL (80-100); Mean Platelet Volume 10.5 fL (7.4-10.4); Monocytes # (auto) 0.84 K/uL (0.11-0.59); Monocytes % (auto) 4.1 %; Neutrophils # (auto) 18.49 K/uL (1.4-6.5); Neutrophils % (auto) 91.4 %; Platelet Count 290 K/uL (130-400); RDW Coefficient of Variation 13.9 % (11.5-14.5); RDW Standard Deviation 42.6 fL (36.4-46.3); Red Blood Count 3.96 M/uL (4.2-5.4); White Blood Count 20.27 K/uL (4.8-10.8)
[2022-01-16] MEDS ORDERED: CITRIC ACID/SODIUM CITRATE 15 ML UDC PO SCH (06:00)
[2022-01-16 07:04] LABS: Albumin Globulin Ratio 0.9 (0.9-2); Albumin Level 2.9 gm/dl (3.4-5.0); BUN Creatinine Ratio 8.3 (10-20); Bilirubin,Total 0.5 mg/dl (0.2-1.0); Calcium 8.6 mg/dl (8.5-10.1); Creatinine Clr Calc Pharmacy 126.6 ml/min; Est GFR (African American) 128.4 ml/min; Est GFR (Non-African American) 110.8 ml/min; Globulin 3.3 gm/dl (2.5-4.0); Potassium 4.1 mmol/L (3.5-5.1); Total Protein 6.2 gm/dl (6.0-8.3)
[2022-01-16 07:18] LABS: Base Excess Cord Arterial Bld -7.1 mEq/L (-9-1.8); Base Excess Cord Venous Blood -5.3 mEq/L (-7.7-1.9); CO2 Cord Arterial Blood 72 mmHg (39.1-73.5); Cord Venous Blood HCO3 23 mmol/L (18.4-26.8); Cord Venous Blood PCO2 58 mmHg (30.4-57.2); Cord Venous Blood PO2 17 mmHg (14.1-43.3); Cord Venous Blood pH 7.22 (7.20-7.44); HCO3 Cord Arterial Blood 23 mmol/L (19.7-28.5); O2 Saturation Cord Venous Bld < 60.0 % (<68); Oxygen Sat Cord Arterial Blood < 60.0 % (<60); PO2 Cord Arterial Blood < 10 mmHg (4.1-31.7); pH Cord Arterial Blood 7.13 (7.1-7.38)
[2022-01-16] MEDS ORDERED: FERROUS SULFATE 325 MG TAB PO SCH (08:00)
[2022-01-16] MEDS ORDERED: PRENATAL VITAMIN 1 TAB PO SCH (08:00)
[2022-01-16] MEDS ORDERED: DOCUSATE SODIUM 100 MG CAP PO SCH (08:00)
[2022-01-16] MEDS: SIMETHICONE 80 MG CHEW PO SCH ×4 (08:08→20:31)
[2022-01-16 09:14] LABS: Hematocrit (blood only) 31.8 % (37-47); Hemoglobin 10.3 g/dL (12.0-16.0); Mean Corpuscular Hemoglobin 27.2 pg (25-34); Mean Corpuscular Hgb Conc 32.4 g/dL (32-36); Mean Corpuscular Volume 83.9 fL (80-100); Mean Platelet Volume 9.9 fL (7.4-10.4); Platelet Count 278 K/uL (130-400); RDW Coefficient of Variation 13.9 % (11.5-14.5); RDW Standard Deviation 42.2 fL (36.4-46.3); Red Blood Count 3.79 M/uL (4.2-5.4); White Blood Count 20.38 K/uL (4.8-10.8)
[2022-01-16 09:50] LABS: Albumin Globulin Ratio 0.9 (0.9-2); Albumin Level 2.7 gm/dl (3.4-5.0); BUN Creatinine Ratio 9.1 (10-20); Bilirubin,Total 0.5 mg/dl (0.2-1.0); Calcium 8.4 mg/dl (8.5-10.1); Creatinine Clr Calc Pharmacy 138.1 ml/min; Est GFR (African American) 135.5 ml/min; Est GFR (Non-African American) 116.9 ml/min; Potassium 3.9 mmol/L (3.5-5.1); Total Protein 5.7 gm/dl (6.0-8.3)
[2022-01-16] MEDS ORDERED: ACETAMINOPHEN SUSP 325 MG/10.15 ML UDC PO PRN (15:28)
[2022-01-16] MEDS ORDERED: Nursing to Pharmacy Communication SCH (15:30)
[2022-01-16] MEDS ORDERED: IBUPROFEN SUSPENSION 100MG/5ML 120ML PO PRN ×2 (15:34→22:50)
[2022-01-16 18:08] LABS: Hematocrit (blood only) 26.7 % (37-47); Hemoglobin 8.6 g/dL (12.0-16.0); Mean Corpuscular Hgb Conc 32.2 g/dL (32-36); Mean Platelet Volume 9.6 fL (7.4-10.4); Platelet Count 247 K/uL (130-400); RDW Coefficient of Variation 13.8 % (11.5-14.5); RDW Standard Deviation 42.1 fL (36.4-46.3); Red Blood Count 3.18 M/uL (4.2-5.4); White Blood Count 16.57 K/uL (4.8-10.8)
[2022-01-16] MEDS: DOCUSATE SODIUM SYRUP 100 MG/10 ML UDC PO SCH (20:31)
[2022-01-16] MEDS ORDERED: MEPERIDINE HCL 50 MG/ML CARP IV PRN (22:50)
[2022-01-16] MEDS ORDERED: IBUPROFEN 600 MG TAB PO PRN (22:50)
[2022-01-16] MEDS ORDERED: diphenhydrAMINE HCL 25 MG/10 ML UDC PO PRN (22:50)
[2022-01-16] MEDS ORDERED: diphenhydrAMINE Capsule 25 MG CAP PO PRN (22:50)
[2022-01-16] MEDS ORDERED: PROMETHAZINE HCL 25 MG in SODIUM CHLORIDE 0.9% 50 ML IV PRN (22:50)
[2022-01-17] MEDS: oxyCODONE/ACETAMINOPHEN 5mg/325mg TAB PO PRN ×3 (00:15→20:57)
[2022-01-17] MEDS: IBUPROFEN 200 MG/10 ML UDC PO PRN ×5 (00:16→18:07)
--- NOTE | 2022-01-17 05:19 | Obstetrical Progress Note ---
Date of Service <Pema Soliz MD - Last Filed: 01/17/22 06:41> January 17, 2022 Assessment & Plan <Pema Soliz MD - Last Filed: 01/17/22 06:41> (1) delivery delivered: 31 yo now POD1 from primary LTCS with left cervical and T extension at 40wk3d for FTP 2/2 CPD -Continue routine care, abdominal binder provided -Vitals reviewed- HDS, afebrile -Pain control with ibuprofen, oxycodone PRN -Urine output appears adequate -Hgb 8.0, stable and asymptomatic -Encourage continued ambulation, <Kaylin Yadav MD - Last Filed: 01/17/22 06:51> (1) delivery delivered: Subjective <Pema Soliz MD - Last Filed: 01/17/22 06:41> Ambulation: ambulating normally Voiding: no voiding problems Passing Gas:: Yes Diet Tolerance:: regular diet Lochia:: Small Feeding Type:: breast feeding Current Pain Level(1-10): 3 Pt doing well overall, no acute complaints or distress. Reports pain and soreness around incision- 3/10 severity. Pain well controlled with medication. Did get up and urinate without difficulty after Phillips removed. Requesting abdominal binder. Review of Systems Denies fever/chills. Denies dyspnea, cough. Denies chest pain. Denies breast pain or discharge. Denies dysuria. Denies headache. Denies back pain. Physical Exam <Pema Soliz MD - Last Filed: 01/17/22 06:41> General: Alert, oriented, no acute distress Cardiac: Regular rate and rhythm, normal S1, S2. No murmurs noted. Respiratory: Clear to auscultation b/l with good air flow entry, symmetric chest rise and fall. No wheezes or crackles. No increased work of breathing or accessory muscle use. Abdomen: Soft, nontender, nondistended. Fundus firm and palpable at 2 cm below umbilicus. Surgical dressing clean, dry without overlying erythema, warmth or drainage, no tenderness to palpation. No guarding or rebound. Skin: No rashes or lesions Extremities: Warm, dry and well-perfused with capillary refill <2s b/l. No lower extremity edema, erythema or swelling. Negative Bc's sign b/l. Results & Data ([facility]) <Pema Soliz MD - Last Filed: 01/17/22 06:41> Vital Signs (Past 12 Hours) Vital Signs Temp Pulse Pulse Resp BP Pulse Ox 01/16/22 23:20 36.6 C 99 H 18 117/75 01/16/22 22:42 18 98 01/16/22 21:30 16 96 01/16/22 20:30 18 98 01/16/22 19:25 20 99 01/16/22 19:05 37.2 C 108 H 20 120/79 99 01/16/22 18:25 20 98 01/16/22 17:30 18 98 <Kaylin Yadav MD - Last Filed: 01/17/22 06:51> Co-Signing Physician Notes Resident Physician Supervision Note: I interviewed and examined the patient. Discussed with Dr. Soliz and agree with findings and plan as documented in the note. Any exceptions or clarifications are listed here: POD1 s/p pCS c/b T-incision and L hysterotomy extension, doing well. VSS exam, benign and wnl, dressing c/d/i. Continue routine postop care, h/h stable from last evening with appropriate drop, cmp wnl Documented By: Kaylin Yadav MD Resident Activity Tracking <Pema Soliz MD - Last Filed: 01/17/22 06:41> Resident Involvement: Resident Care Provided Care Provided: OB Delivery
[2022-01-17 06:26] LABS: Hematocrit (blood only) 24.8 % (37-47); Mean Corpuscular Hemoglobin 27.1 pg (25-34); Mean Corpuscular Hgb Conc 32.3 g/dL (32-36); Mean Corpuscular Volume 84.1 fL (80-100); Mean Platelet Volume 9.4 fL (7.4-10.4); Platelet Count 251 K/uL (130-400); RDW Coefficient of Variation 14.1 % (11.5-14.5); Red Blood Count 2.95 M/uL (4.2-5.4); White Blood Count 12.55 K/uL (4.8-10.8)
[2022-01-17 06:44] LABS: Albumin Level 2.4 gm/dl (3.4-5.0); BUN Creatinine Ratio 10.6 (10-20); Bilirubin,Total 0.3 mg/dl (0.2-1.0); Creatinine Clr Calc Pharmacy 138.1 ml/min; Est GFR (African American) 135.5 ml/min; Est GFR (Non-African American) 116.9 ml/min; Globulin 2.5 gm/dl (2.5-4.0); Potassium 3.5 mmol/L (3.5-5.1); Total Protein 4.9 gm/dl (6.0-8.3)
[2022-01-17] MEDS: DOCUSATE SODIUM SYRUP 100 MG/10 ML UDC PO SCH ×2 (09:05→20:57)
[2022-01-17] MEDS: SIMETHICONE 80 MG CHEW PO SCH ×2 (09:06→20:57)
[2022-01-17] MEDS: FERROUS SULFATE 325 MG/7.4 ML UDP PO SCH (09:14)
[2022-01-17] MEDS ORDERED: Nursing to Pharmacy Communication SCH (09:30)
[2022-01-17] MEDS: MULTIVITAMIN CHEWABLE TAB PO SCH (14:02)
[2022-01-17] MEDS ORDERED: bisacodyL 5 MG TABEC PO SCH (20:00)
--- NOTE | 2022-01-17 21:56 | Obstetrical Progress Note ---
Date of Service January 17, 2022 Assessment & Plan Admission and Anticipated Discharge Date Admission Date: January 15, 2022 Subjective I was notified this evening that patient has been complaining of left leg pain throughout the day today. She has been ambulating, wearing EPC cuffs off and on, and is still feeling the crampy pain in the back of her left leg and in her left anterior thigh. No difficulty breathing or shortness of breath and she has not noticed any LE swelling. On exam, no LE edema, mild calf tenderness. No obvious ropiness, neg Bc's. Will order bilat LE dopplers, given patient's pain and her increased risk factors for DVT - , s/p . She is agreeable. Results & Data ([facility]) Vital Signs (Past 12 Hours) Vital Signs Temp Pulse Resp BP 01/17/22 15:26 36.8 C 94 H 18 121/78 PG Care Time/CCT Total # of Minutes Spent Total Time Spent with Patient: Total time spent is greater than 50% in coordination of care (as documented) at patient's floor/unit and/or counseling patient: Coding Level of Care Code None
[2022-01-18] MEDS: oxyCODONE/ACETAMINOPHEN 5mg/325mg TAB PO PRN ×3 (01:46→12:41)
[2022-01-18] MEDS: IBUPROFEN 200 MG/10 ML UDC PO PRN ×3 (01:47→11:21)
[2022-01-18] MEDS ORDERED: bisacodyL 10 MG SUPP PR PRN (04:38)
--- NOTE | 2022-01-18 05:43 | Obstetrical Progress Note ---
Date of Service <Pema Soliz MD - Last Filed: 01/18/22 07:13> January 18, 2022 Assessment & Plan <Pema Soliz MD - Last Filed: 01/18/22 07:13> (1) delivery delivered: 31 yo now POD2 from primary LTCS with left cervical and T extension at 40wk3d for FTP 2/2 CPD -Continue routine care, can discharge later today if pt prefers and remains clinically stable- she will decide based on traffic administrator's recommendations for her baby's jaundice -Vitals reviewed- HDS, afebrile -Pain control with ibuprofen, oxycodone PRN -Hgb 8.0, stable from day prior -LE dopplers negative for DVT, suspect mild calf pain 2/2 fluid stasis that should improve with continued ambulation -Encourage continued ambulation, -F/u with OB in 6 weeks <Cindy Meadows DO - Last Filed: 01/18/22 08:09> (1) delivery delivered: Subjective <Pema Soliz MD - Last Filed: 01/18/22 07:13> Ambulation: ambulating normally Voiding: no voiding problems Passing Gas:: Yes Diet Tolerance:: regular diet Lochia:: Small Feeding Type:: breast feeding Current Pain Level(1-10): 3 Pt doing well overall, no acute complaints or distress. Pain well controlled with medication. Denies any calf pain at rest. Review of Systems Denies fever/chills. Denies dyspnea, cough. Denies chest pain. Denies breast pain or discharge. Denies dysuria. Denies headache. Denies back pain. Physical Exam <Pema Soliz MD - Last Filed: 01/18/22 07:13> General: Alert, oriented, no acute distress Cardiac: Regular rate and rhythm, normal S1, S2. No murmurs noted. Respiratory: Clear to auscultation b/l with good air flow entry, symmetric chest rise and fall. No wheezes or crackles. No increased work of breathing or accessory muscle use. Abdomen: Soft, nontender, nondistended. Fundus firm and palpable at 2 cm below umbilicus. Surgical incision clean, dry without erythema, warmth or drainage, no tenderness to palpation. No guarding or rebound. Skin: No rashes or lesions Extremities: Warm, dry and well-perfused with capillary refill <2s b/l. No lower extremity edema, erythema or swelling. Mild tenderness to palpation of L distal calf Results & Data ([facility]) <Pema Soliz MD - Last Filed: 01/18/22 07:13> Vital Signs (Past 12 Hours) Vital Signs Temp Pulse Resp BP Pulse Ox 01/18/22 03:15 36.8 C 98 H 16 120/82 99 01/17/22 22:40 36.7 C 104 H 17 126/82 97 <Cindy Meadows DO - Last Filed: 01/18/22 08:09> Co-Signing Physician Notes Resident Physician Supervision Note: I interviewed and examined the patient. Discussed with Dr. Soliz and agree with findings and plan as documented in the note. Any exceptions or clarifications are listed here: POD#2 doing well. Incision CDI - benny will need to be reevaluated/removed in office in 1 week. Patient would like DC home if baby is able to go. She is doing well. Dada LE dopplers negative. Followup in 6w in office. Rx percocet #20 tabs sent to pharmacy. Reviewed DC instructions. Documented By: Cindy Meadows DO Resident Activity Tracking <Pema Soliz MD - Last Filed: 01/18/22 07:13> Resident Involvement: Resident Care Provided Care Provided: OB Delivery
--- NOTE | 2022-01-18 06:36 | Ultrasound Report ---
ULTRASOUND BILATERAL LOWER EXTREMITY VENOUS CLINICAL HISTORY: Leg pain status post section. COMPARISON STUDY: No priors. TECHNIQUE: Real-time, grayscale, and color Doppler sonography of the deep veins of the right and left lower extremity was performed from the inguinal crease to the calf. Compression and augmentation wer e utilized. FINDINGS: There is no sonographic evidence of deep venous thrombosis identified in the right or left lower extremity. The common femoral, superficial femoral, and popliteal veins are patent and normally compressible bilaterally. The greater saphenous vein and the profunda femoris vein at the junction w ith the common femoral vein are clear in both legs. The visualized calf veins are patent bilaterally. IMPRESSION: There is no sonographic evidence of deep venous thrombosis identified in the right or lef t lower extremity. ACT 112: Negative or not required by law. Electronically signed by: Thai Russell M.D. 01/18/2022 6:35 AM
[2022-01-18 06:52] LABS: Hematocrit (blood only) 24.7 % (37-47)
[2022-01-18] MEDS: MULTIVITAMIN CHEWABLE TAB PO SCH (08:03)
[2022-01-18] MEDS: SIMETHICONE 80 MG CHEW PO SCH ×2 (08:03→11:21)
[2022-01-18] MEDS: DOCUSATE SODIUM SYRUP 100 MG/10 ML UDC PO SCH (08:04)
[2022-01-18] MEDS: FERROUS SULFATE 325 MG/7.4 ML UDP PO SCH (08:04)
--- NOTE | 2022-01-20 07:51 | Discharge Summary (DS) ---
ADMISSION DIAGNOSES: 1. Intrauterine at 40 and 3/7 weeks. 2. Premature rupture of membranes. 3. Unfavorable cervix. 4. Meconium stained fluid. DISCHARGE DIAGNOSES: 1. Intrauterine at 40 and 3/7 weeks. 2. Premature rupture of membranes. 3. Unfavorable cervix. 4. Meconium stained fluid. 5. Failure to descend/cephalopelvic disproportion. PROCEDURES: 1. P.o. Cytotec. 2. Epidural. 3. Pitocin augmentation. 4. Primary low transverse section with T incision and left cervical extension. HISTORY: The patient is a 31-year-old 2, para 1-0-0-1 with an intrauterine at 40 and 3/7 weeks, who presents to labor and delivery complaining of leaking fluid since about noon. Notes fluid was yellow and green tinged. Notes some cramping since then. Good movement. No vaginal bleeding. The patient passed her 16-week GTT, but her 28 GTT was 152 and she did not take a 2-hour GTT. She was not treated as a diabetic. A 32-week growth scan for obesity showed baby with an AC in the 73rd percentile and estimated weight 68th percentile. The patient declined nonstress test at the end of for AMA because of getting short of breath in the chair when sitting for them. For the rest of the patient's history and physical, please see her dictated history and physical. On admission, the cervix was one long and high. She was delaney. She was having mild intermittent contractions and irritability. Estimated heart tones in the 150s with moderate variability, accels to the 160s and no decelerations. ASSESSMENT: This is a PROM, meconium fluid, 40 and 3/7 weeks who is presenting. HOSPITAL COURSE: The patient appeared to be delaney too frequently for Cytotec initially and was offered expectant management of Pitocin now. She chose expectant management at that time. After observation and further monitoring, it looked like the uters just had some irritability and some mild intermittent contractions q. 7 to 8 minutes, so was given p.o. Cytotec. Unfortunately, shortly after giving p.o. Cytotec, she had a run of 4 contractions together and had 4 variable decels in the space of 20 minutes. She received subcu terbutaline. The variables resolved and the heart tones returned to category 1. Decision was made to monitor expectantly as she had just received about 45 minutes to an hour ago p.o. Cytotec. She eventually became painful, got an epidural at 6:20. She was found to be 3/75 and -2, delaney every 3-5 minutes. She had one prolonged contraction for about 4 minutes with a small decel that resolved immediately upon discontinuation of the contraction and had no further. So we continued to monitor in labor. The patient continued to make some slow spontaneous change. At 8:30, she was 4, 90, and -2. At at 9:40, she was 5, 100, and -2, again all spontaneous. At 0026 hours, she was 9 and +1 per nursing delaney every 2-4 minutes. heart tones in the 150s with moderate variability, variable early with contractions. The patient continued to have this contraction pattern and these variables. At 1:17, she was rechecked and found to have not changed. She had been 9 cm for probably 2 hours. Decision was made to recheck in an hour to consider starting Pitocin. She was rechecked at 2:42 and was still 9 and 0 to +[address] for probably about 4 hours. We attempted to reduce the cervix and push past the cervix without success. Given this, I suspected cephalopelvic disproportion, discussed with the patient and her and they agreed to proceed with delivery. The patient underwent a primary low transverse section. During the course of the , a T extension was needed to replace an arm that had prolapsed out the incision and after delivery of the baby a large left cervical laceration was identified. These were all repaired. Please see the operative report for further details. Thick meconium was noted on entering the uterus. This male infant was in cephalic ASHLEY presentation wedged into the pelvis. Estimated blood loss was approximately 800 mL. POSTOPERATIVE COURSE: The patient's postoperative course was uncomplicated. She tolerated a regular diet, ambulated without difficulty. Tolerated oral pain medications and ambulated without difficulty. She voided after the removal of her Phillips catheter. On the evening of 01/17/2022, she complained of some left leg pain. She had a venous Doppler of the left leg, which was negative. Her vitals remained stable. On postoperative day #3, she was discharged home. Her discharge hemoglobin was 8.0, but was stable and she was asymptomatic from that. We did follow her creatinine given the left cervical extension and need for several stitches in the area of the left uterine artery and her creatinine remains low, right after surgery it was 0.72 and on 01/17/2022 it was 0.66. The patient will return in six weeks for postoperative care. Job ID: [id number] MTDD
== END 2022-01-18 14:58 | disposition home or self-care (01) | DRG 787 ==
LOC: OPB 13:08 → 4S1 13:11 → 4E2 01-16 07:55